=== PATIENT | female | born 1970 | race Caucasian/White ===

== ENCOUNTER → 2020-04-01 | Outpatient (CLI) | payer MEDICARE | LOC: GOCC 19:19 | PROVIDERS: ATTEND Internal Medicine | DX: A04.71 Enterocolitis due to Clostridium difficile, recurrent (principal); B96.7 Clostridium perfringens [C. perfringens] as the cause of diseases classified elsewhere ==

== ENCOUNTER → 2020-05-15 | Outpatient (CLI) | payer MEDICARE, MEDICAID | LOC: GOCC 11:06 | PROVIDERS: ATTEND Internal Medicine | DX: Z20.828 Contact with and (suspected) exposure to other viral communicable diseases (principal); J96.20 Acute and chronic respiratory failure, unspecified whether with hypoxia or hypercapnia; Z99.11 Dependence on respirator [ventilator] status; R49.1 Aphonia; R13.10 Dysphagia, unspecified; A04.71 Enterocolitis due to Clostridium difficile, recurrent; Z93.1 Gastrostomy status; R13.12 Dysphagia, oropharyngeal phase; K59.00 Constipation, unspecified; B37.9 Candidiasis, unspecified; F41.9 Anxiety disorder, unspecified; E03.9 Hypothyroidism, unspecified; I50.9 Heart failure, unspecified; I10 Essential (primary) hypertension; G47.00 Insomnia, unspecified; Z93.0 Tracheostomy status; I80.9 Phlebitis and thrombophlebitis of unspecified site; R27.8 Other lack of coordination; E66.01 Morbid (severe) obesity due to excess calories; E87.6 Hypokalemia; M62.81 Muscle weakness (generalized); R27.9 Unspecified lack of coordination; R26.81 Unsteadiness on feet; E11.40 Type 2 diabetes mellitus with diabetic neuropathy, unspecified; R21 Rash and other nonspecific skin eruption; H66.90 Otitis media, unspecified, unspecified ear; N31.9 Neuromuscular dysfunction of bladder, unspecified; M62.59 Muscle wasting and atrophy, not elsewhere classified, multiple sites ==

== ENCOUNTER 2020-05-19 20:16 | Emergency (ER) | payer MEDICARE, MEDICAID ==
--- NOTE | 2020-05-19 20:26 | ED.PDOC ---
History of Present Illness - General Time Seen by Provider: 05/19/20 20:23 Information Source: patient, RN notes reviewed, Vital Signs reviewed, EMS notes reviewed Exam Limitations: other - pt has a trach and mouths words - History of Present Illness Initial Comments: 50 y/o female resident of [place], nonambulatory suffers from chronic abd pain but she has had marked distention for 2 days. She had a BM today and yesterday. She takes narcotic for chronic abd pain. She had a neg covid 5 days ago. Abdominal Pain Onset Location: generalized abdomen Pain Radiation: no radiation Quality: severe, steady Timing/Duration: days - 2 days Improving Factors: nothing Worsening Factors: nothing Associated Symptoms: denies symptoms Review of Systems - Review of Systems Constitutional: States: see HPI EENTM: States: no symptoms reported Respiratory: States: no symptoms reported Cardiology: States: no symptoms reported Gastrointestinal/Abdominal: States: abdominal pain, other - distention Genitourinary: States: no symptoms reported Musculoskeletal: States: other - non ambulatory Skin: States: no symptoms reported Family Medical History - Family History Mother Family History: Unknown Physical Exam - Physical Exam General Appearance: Alert, No apparent distress Eyes, Ears, Nose, Throat Exam: PERRL/EOMI, pharynx normal Neck: other - trach with trach collar Respiratory: chest non-tender, lungs clear, normal breath sounds, no respiratory distress, no accessory muscle use, decreased breath sounds Cardiovascular/Chest: regular rate, rhythm, no edema, no gallop, no JVD, no murmur Gastrointestinal/Abdominal: other - high pitched Back Exam: normal inspection Extremity: other - pt has good ROM, bed bound Neurologic: no motor/sensory deficits, alert, normal mood/affect, oriented x 3 Departure - Departure Clinical Impression: Gastroparesis, Abdominal pain Time of Disposition: 23:14 Disposition: Discharge to SNF Condition: Fair Instructions: Gastroparesis (Delayed Gastric Emptying) Diet: full liquid diet Referrals: VALENTINA DODD [Primary Care Provider] - 1-2 Weeks Prescriptions: Metoclopramide HCl [Reglan] 10 mg PO AC PRN 28 Days #20 tab PRN Reason: Abdominal Distress Home Medications: Ambulatory Orders Amlodipine Besylate 5 mg PO DAILY 05/19/20 Bisacodyl 10 mg DAILY PRN 05/19/20 Budesonide 0.5 mg INH BID 05/19/20 Carboxymethylcellulose Sodium 2 drop BOTH_EYES Q12HR 05/19/20 Chlorhexidine Gluconate 15 ml PO Q6HR 05/19/20 Clonazepam 1 mg PO BEDTIME 05/19/20 Cyanocobalamin 1 tablet PO DAILY 05/19/20 Cyclobenzaprine HCl 10 mg PO Q8HR 05/19/20 Diltiazem HCl 30 mg PO Q8HR 05/19/20 Eliquis 5 mg PO Q12HR 05/19/20 Ergocalciferol 1 capsule PO DAILY 05/19/20 Guaifenesin 10 ml PO Q4HR 05/19/20 HYDROmorphone HCL 2 mg PO Q6HR PRN 05/19/20 Humalog 05/19/20 Ibuprofen 400 mg PO Q8HR PRN 05/19/20 Ipratropium-Albuterol 3 ml INH Q12HR 05/19/20 Lactulose 30 ml PO DAILY 05/19/20 Lansoprazole 30 mg PO DAILY 05/19/20 Lasix 40 mg PO DAILY 05/19/20 Levemir 20 units SUBCU Q12HR 05/19/20 Levothyroxine Sodium 100 mg PO DAILY 05/19/20 Maalox 30 ml PO DAILY 05/19/20 Metoclopramide HCl [Reglan] 10 mg PO AC PRN 28 Days #20 tab 05/19/20 Montelukast 10 mg PO DAILY 05/19/20 Multivitamin 1 PO DAILY 05/19/20 Polyethylene Glycol 17 gm PO DAILY 05/19/20 Senna/Docusate Sodium 8.6-50 mg 8.6 - 50 mg PO DAILY 05/19/20 Tramadol HCl 50 mg PO Q6HR PRN 05/19/20 Trazodone HCl 200 mg PO DAILY 05/19/20 Tylenol 500 mg PO Q6HRS PRN 05/19/20 Vitamin C 500 mg PO DAILY 05/19/20 Zyrtec 10 mg PO DAILY 05/19/20
[2020-05-19] MEDS ORDERED: ONDANSETRON INJ 4 MG/2 ML VIAL IV ONE (20:29)
[2020-05-19] MEDS ORDERED: SODIUM CHLORIDE 0.9% (FLUSH) 10 ML SYG IV PRN (20:29)
[2020-05-19] MEDS ORDERED: MORPHINE SULFATE INJ 10 MG/ML VIAL IV ONE (20:31)
[2020-05-19] MEDS ORDERED: fentaNYL CITRATE INJ 50 MCG/ML AMP IV ONE ×3 (21:15→23:20)
--- NOTE | 2020-05-19 23:00 | CT ---
EXAM DESCRIPTION: Abdomen/Pelvis w/Contrast CLINICAL HISTORY: 50 years Female severe distention and pain COMPARISON: None TECHNIQUE: Multiple contiguous axial CT slices were taken from the diaphragms to the pubic symphysis after intravenous administration of Iodinated contrast. This exam was performed according to our departmental dose-optimization program, which includes automated exposure control, adjustment of the mA and/or kV according to patient size and/or use of iterative reconstruction technique. FINDINGS: Suboptimal study quality due to partial exclusion of the left anterior and lateral abdominal wall and adjacent abdominal contents due to body habitus Minimal linear atelectasis at the right lung base. Lungs otherwise clear. Presents paranasal structures normal. No focal hepatic lesions. Gallbladder bile ducts pancreas spleen and adrenals are normal normal. Kidneys ureters and bladder are unremarkable, accounting for ectopic position of the right kidney. Uterus is normal with IUD in place. No suspicious adnexal lesions. Hiatal hernia. Cluster of mildly dilated loops of proximal small bowel centered within the left upper quadrant, but without air-fluid level or discernible transition point. There is also a focally dilated outpouching of small bowel with equalized contents in the central abdomen, involving the ileum.. Some adjacent coarse calcification is noted. Appendix is normal. The cecum and ascending colon are normal. The transverse colon appears normal, but otherwise redundant. The splenic flexure is partially excluded from the [id number] along with the left aspect of the anterior and lateral abdominal bella, due to body habitus. Redundant sigmoid colon. The sigmoid colon tracks up into the right upper quadrant, adjacent to the hepatic flexure but is not appreciably dilated and and there is no evidence of upstream bowel dilation. There is no evidence of vascular pedicle swelling. No discernible pneumatosis or pneumoperitoneum cannot for study limitations. Limited for evaluation of abdominal hernia defects although none are seen. Aorta and IVC are normal. No lymphadenopathy. No destructive osseous lesions. IMPRESSION: 1. Suboptimal exam secondary to reasons stated above. 2. Equivocal for evidence of bowel obstruction. Specifically, there are nonspecific focally dilated loops of proximal small bowel within the left upper quadrant, without clear transition point. There is also redundant sigmoid, extending up to residing in the right upper quadrant, but without features of volvulus. 3. Incidental probable Meckel's diverticulum. 4. Hiatal hernia. Electronically signed by: Antwan Lorenzo MD 05/19/2020 10:59 PM CDT
[2020-05-19 23:51] VITALS: BP 122/50; TEMP 97.6; O2SAT 98
== END 2020-05-19 23:45 ==
LOC: ER 20:16
DX: K31.84 Gastroparesis (principal); G89.29 Other chronic pain; Z79.899 Other long term (current) drug therapy
CPT/HCPCS: 36415; 74177; 80048; 80076; 81001; 85025; 87086; A4216; J2405; J3010

== ENCOUNTER 2020-06-13 19:23 | Emergency (ER) | payer MEDICARE, MEDICAID ==
[2020-06-13] MEDS ORDERED: fentaNYL CITRATE INJ 50 MCG/ML AMP IV ONE ×3 (19:45→23:45)
[2020-06-13] MEDS ORDERED: ONDANSETRON INJ 4 MG/2 ML VIAL IV ONE (19:45)
--- NOTE | 2020-06-13 21:41 | RAD ---
EXAM: Knee,Left Complete CLINICAL HISTORY: left knee pain COMPARISON: None. TECHNIQUE: AP lateral, and sunrise radiographs of the left knee. FINDINGS: Anatomic alignment. No fracture, dislocation or destructive osseous lesion. Advanced tricompartmental osteoarthrosis, most pronounced in the medial and patellofemoral compartments. Suspected loose intra-articular body is noted near the intercondylar notch. No joint effusion. No soft tissue swelling. IMPRESSION: 1. No fracture or traumatic malalignment. 2. Advanced tricompartmental osteoarthrosis Electronically signed by: Antwan Lorenzo MD 06/13/2020 9:39 PM CDT
--- NOTE | 2020-06-13 21:42 | RAD ---
EXAM: Pelvis CLINICAL HISTORY: left hip pain COMPARISON: None. TECHNIQUE: AP radiographs of the pelvis. FINDINGS: Pelvic ring is intact. Hip joints are congruent. Sacroiliac joints are congruent. No fracture dislocation or destructive osseous lesion. Sacrum obscured by overlying bowel gas. IMPRESSION: 1. No acute abnormality. Electronically signed by: Antwan Lorenzo MD 06/13/2020 9:40 PM CDT
--- NOTE | 2020-06-13 22:32 | ED.PDOC ---
History of Present Illness - General Chief Complaint: Lower Extremity Injury Stated Complaint: left knee pain Time Seen by Provider: 06/13/20 19:44 Source: patient, RN notes reviewed, Vital Signs reviewed, EMS notes reviewed Exam Limitations: other - Difficult to communicate with the patient because she is trached - History of Present Illness Initial Comments: Patient is a 50-year-old white female who presents from [facility] with complaints of left knee and left hip pain. [facility] patient had an x-ray of her knee which showed it was fractured and this was done a couple of weeks ago. Patient reported worsening pain and therefore, the [facility] her to the [facility] for further evaluation. The pain is sharp in nature. Worse with palpation. Better with rest and pain medication. Nonradiating. The pain is been ongoing for a few weeks. Severity: moderate Pain Location: lower extremity Method of Injury: unknown Improving Factors: medication, rest Worsening Factors: movement Loss of Consciousness: no loss of consciousness Associated Symptoms (Fall): denies symptoms Allergies/Adverse Reactions: Allergies Azithromycin Allergy (Verified 05/19/20 20:48) Bismuth Subsalicylate Allergy (Verified 05/19/20 20:48) Cephalexin Allergy (Verified 05/19/20 20:48) Clindamycin Allergy (Verified 05/19/20 20:48) Doxycycline Allergy (Verified 05/19/20 20:48) Famotidine Allergy (Verified 05/19/20 20:48) Fish Allergy Allergy (Verified 05/19/20 20:48) Gabapentin Allergy (Verified 05/19/20 20:48) Hydrochlorothiazide Allergy (Verified 05/19/20 20:48) Hydrocodone Allergy (Verified 05/19/20 20:48) Influenza Vaccines Allergy (Verified 05/19/20 20:48) Iodine Allergy (Verified 05/19/20 20:48) Latex Allergy (Verified 05/19/20 20:48) Metformin Allergy (Verified 05/19/20 20:48) Morphine Allergy (Verified 05/19/20 20:48) Oxycodone Allergy (Verified 05/19/20 20:48) Penicillins Allergy (Verified 05/19/20 20:48) Sulfacetamide Allergy (Verified 05/19/20 20:48) Sulfamethoxazole Allergy (Verified 05/19/20 20:48) Home Medications: Ambulatory Orders Amlodipine Besylate 5 mg PO DAILY 05/19/20 Bisacodyl 10 mg DAILY PRN 05/19/20 Budesonide 0.5 mg INH BID 05/19/20 Carboxymethylcellulose Sodium 2 drop BOTH_EYES Q12HR 05/19/20 Chlorhexidine Gluconate 15 ml PO Q6HR 05/19/20 Clonazepam 1 mg PO BEDTIME 05/19/20 Cyanocobalamin 1 tablet PO DAILY 05/19/20 Cyclobenzaprine HCl 10 mg PO Q8HR 05/19/20 Diltiazem HCl 30 mg PO Q8HR 05/19/20 Eliquis 5 mg PO Q12HR 05/19/20 Ergocalciferol 1 capsule PO DAILY 05/19/20 Guaifenesin 10 ml PO Q4HR 05/19/20 HYDROmorphone HCL 2 mg PO Q6HR PRN 05/19/20 Humalog 05/19/20 Ibuprofen 400 mg PO Q8HR PRN 05/19/20 Ipratropium-Albuterol 3 ml INH Q12HR 05/19/20 Lactulose 30 ml PO DAILY 05/19/20 Lansoprazole 30 mg PO DAILY 05/19/20 Lasix 40 mg PO DAILY 05/19/20 Levemir 20 units SUBCU Q12HR 05/19/20 Levothyroxine Sodium 100 mg PO DAILY 05/19/20 Maalox 30 ml PO DAILY 05/19/20 Metoclopramide HCl [Reglan] 10 mg PO AC PRN 28 Days #20 tab 05/19/20 Montelukast 10 mg PO DAILY 05/19/20 Multivitamin 1 PO DAILY 05/19/20 Polyethylene Glycol 17 gm PO DAILY 05/19/20 Senna/Docusate Sodium 8.6-50 mg 8.6 - 50 mg PO DAILY 05/19/20 Tramadol HCl 50 mg PO Q6HR PRN 05/19/20 Trazodone HCl 200 mg PO DAILY 05/19/20 Tylenol 500 mg PO Q6HRS PRN 05/19/20 Vitamin C 500 mg PO DAILY 05/19/20 Zyrtec 10 mg PO DAILY 05/19/20 Review of Systems - Review of Systems Constitutional: States: no symptoms reported, see HPI. Denies: chills, fever, malaise, weakness EENTM: States: no symptoms reported. Denies: eye pain, blurred vision, double vision Respiratory: States: cough - chronic Cardiology: States: no symptoms reported. Denies: chest pain, palpitations, syncope Gastrointestinal/Abdominal: States: no symptoms reported. Denies: abdominal pain, diarrhea, nausea Genitourinary: States: no symptoms reported Musculoskeletal: States: joint pain - left knee/hip. Denies: back pain Skin: States: no symptoms reported. Denies: change in color Neurological: States: anxiety. Denies: headache, numbness, tingling Endocrine: States: no symptoms reported Hematologic/Lymphatic: States: no symptoms reported All other Systems: No Change from Baseline Past Medical History (General) - Patient Medical History Hx Seizures: No Hx Stroke: No Hx Dementia: No Hx Asthma: No Hx of COPD: Yes Hx Cardiac Disorders: Yes Hx Congestive Heart Failure: Yes Hx Pacemaker: No Hx Hypertension: Yes Hx Thyroid Disease: Yes Hx Diabetes: Yes Hx Gastroesophageal Reflux: Yes Hx Renal Disease: No Hx Cancer: No Hx of HIV: No Hx Hepatitis C: No Hx MRSA: No Surgical History: other - Vaccination History Hx Tetanus, Diphtheria Vaccination: Yes Hx Influenza Vaccination: Yes Hx Pneumococcal Vaccination: Yes Immunizations Up to Date: No - Social History Hx Tobacco Use: No Hx Chewing Tobacco Use: No Hx Alcohol Use: No Hx Substance Use: No Hx Substance Use Treatment: No Hx Depression: Yes Feels Threatened In Home Enviroment: No Feels Threatened In a Relationship: No Hx Physical Abuse: No Hx Emotional Abuse: No Hx Suspected Abuse: No - Activities of Daily Living Skilled Nursing/Assisted Living (if applicable):: [facility] (if applicable):: None - Female History Patient is a Female of Child Bearing Age (10 -59 yrs old): No Family Medical History - Family History Mother Family History: Unknown Physical Exam - Physical Exam General Appearance: Alert, Anxious, Obese, Well Hydrated, Well Nourished Head Injury: no evidence of injury Eye Exam: bilateral normal ENT Exam: hearing grossly normal, no dental injury, other Neck Exam: non-tender, full range of motion, normal alignment, other - trach in place Cardiovascular/Respiratory: regular rate, rhythm, no M/R/G, normal peripheral pulses, no respiratory distress, rhonchi - diffusely throughout Gastrointestinal/Abdominal: normal bowel sounds, non tender, soft, other - morbidly obese Extremity Exam: pelvis stable, bony-point tenderness, pain with movement Neurologic: eeo officer II-XII nml as tested, no motor/sensory deficits, alert, normal mood/affect, oriented x 3 Skin Exam: normal color, warm/dry - [place] Coma Score Best Eye Response ([place]): (4) open spontaneously Best Verbal Response (Maggie): (5) oriented Best Motor Response (Maggie): (6) obeys commands Maggie Total: 15 Progress - Progress Progress: Differential diagnosis: Knee sprain, hip sprain, knee fracture, hip fracture among others. 06/13/20 23:07 X-ray did not show any fractures. Patient's pain improved after pain meds. Plan [facility] at this [facility]. I have discussed this plan of care with the patient she voices understanding and agreement. Arnulfo Mantilla M.D. #[id number] - Results/Orders Results/Orders: EXAM: Knee,Left Complete CLINICAL HISTORY: left knee pain COMPARISON: None. TECHNIQUE: AP lateral, and sunrise radiographs of the left knee. FINDINGS: Anatomic alignment. No fracture, dislocation or destructive osseous lesion. Advanced tricompartmental osteoarthrosis, most pronounced in the medial and patellofemoral compartments. Suspected loose intra-articular body is noted near the intercondylar notch. No joint effusion. No soft tissue swelling. IMPRESSION: 1. No fracture or traumatic malalignment. 2. Advanced tricompartmental osteoarthrosis Electronically signed by: Antwan Lorenzo MD 06/13/2020 9:39 PM CDT EXAM: Pelvis CLINICAL HISTORY: left hip pain COMPARISON: None. TECHNIQUE: AP radiographs of the pelvis. FINDINGS: Pelvic ring is intact. Hip joints are congruent. Sacroiliac joints are congruent. No fracture dislocation or destructive osseous lesion. Sacrum obscured by overlying bowel gas. IMPRESSION: 1. No acute abnormality. Electronically signed by: Antwan Lorenzo MD 06/13/2020 9:40 PM CDT Vital Signs 06/13/20 06/13/20 06/13/20 19:25 20:23 21:00 Temperature 98.1 F 98.0 F 98.1 F Pulse Rate [ 91 H 90 89 Right Arm] Respiratory 20 18 18 Rate Blood Pressure 112/55 113/59 116/76 [Right Arm] O2 Sat by Pulse 90 L 92 L 91 L Oximetry 06/13/20 22:00 Temperature Pulse Rate [ 83 Right Arm] Respiratory 18 Rate Blood Pressure 114/72 [Right Arm] O2 Sat by Pulse 96 Oximetry Departure - Departure Clinical Impression: Hip pain, Morbid obesity Knee pain Qualifiers: Chronicity: acute Laterality: left Qualified Code(s): M25.562 - Pain in left knee Time of Disposition: 23:08 Disposition: Discharge to SNF Condition: Fair Departure Forms: ED Discharge - Pt. Copy, Patient Portal Self Enrollment Instructions: DI for Leg Pain, Contusion (DC), Knee Sprain (DC) Activity: as per physical therapy, no pushing/pulling with affected limb Referrals: VALENTINA DODD [Primary Care Provider] - 1-5 Days Home Medications: Ambulatory Orders Amlodipine Besylate 5 mg PO DAILY 05/19/20 Bisacodyl 10 mg DAILY PRN 05/19/20 Budesonide 0.5 mg INH BID 05/19/20 Carboxymethylcellulose Sodium 2 drop BOTH_EYES Q12HR 05/19/20 Chlorhexidine Gluconate 15 ml PO Q6HR 05/19/20 Clonazepam 1 mg PO BEDTIME 05/19/20 Cyanocobalamin 1 tablet PO DAILY 05/19/20 Cyclobenzaprine HCl 10 mg PO Q8HR 05/19/20 Diltiazem HCl 30 mg PO Q8HR 05/19/20 Eliquis 5 mg PO Q12HR 05/19/20 Ergocalciferol 1 capsule PO DAILY 05/19/20 Guaifenesin 10 ml PO Q4HR 05/19/20 HYDROmorphone HCL 2 mg PO Q6HR PRN 05/19/20 Humalog 05/19/20 Ibuprofen 400 mg PO Q8HR PRN 05/19/20 Ipratropium-Albuterol 3 ml INH Q12HR 05/19/20 Lactulose 30 ml PO DAILY 05/19/20 Lansoprazole 30 mg PO DAILY 05/19/20 Lasix 40 mg PO DAILY 05/19/20 Levemir 20 units SUBCU Q12HR 05/19/20 Levothyroxine Sodium 100 mg PO DAILY 05/19/20 Maalox 30 ml PO DAILY 05/19/20 Metoclopramide HCl [Reglan] 10 mg PO AC PRN 28 Days #20 tab 05/19/20 Montelukast 10 mg PO DAILY 05/19/20 Multivitamin 1 PO DAILY 05/19/20 Polyethylene Glycol 17 gm PO DAILY 05/19/20 Senna/Docusate Sodium 8.6-50 mg 8.6 - 50 mg PO DAILY 05/19/20 Tramadol HCl 50 mg PO Q6HR PRN 05/19/20 Trazodone HCl 200 mg PO DAILY 05/19/20 Tylenol 500 mg PO Q6HRS PRN 05/19/20 Vitamin C 500 mg PO DAILY 05/19/20 Zyrtec 10 mg PO DAILY 05/19/20
[2020-06-13] MEDS ORDERED: fentaNYL CITRATE INJ 50 MCG/ML AMP ONE (23:36)
[2020-06-14 00:11] VITALS: BP 123/64; TEMP 97.5; O2SAT 98
== END 2020-06-14 00:08 ==
LOC: ER 19:23
DX: M25.562 Pain in left knee (principal); M25.552 Pain in left hip; E66.01 Morbid (severe) obesity due to excess calories; K21.9 Gastro-esophageal reflux disease without esophagitis; E11.9 Type 2 diabetes mellitus without complications; I11.0 Hypertensive heart disease with heart failure; I50.9 Heart failure, unspecified; J44.9 Chronic obstructive pulmonary disease, unspecified; E07.9 Disorder of thyroid, unspecified; Z68.44 Body mass index [BMI] 60.0-69.9, adult; Z79.899 Other long term (current) drug therapy; Z79.4 Long term (current) use of insulin; Z79.01 Long term (current) use of anticoagulants; Z88.8 Allergy status to other drugs, medicaments and biological substances; Z88.2 Allergy status to sulfonamides; Z88.0 Allergy status to penicillin; Z88.5 Allergy status to narcotic agent; Z91.040 Latex allergy status; Z91.041 Radiographic dye allergy status; Z88.1 Allergy status to other antibiotic agents; Z87.81 Personal history of (healed) traumatic fracture
CPT/HCPCS: 72170; 73562; J2405; J3010

== ENCOUNTER 2020-06-26 12:12 | Emergency (ER) | payer MEDICARE, MEDICAID ==
[2020-06-26] MEDS ORDERED: traMADol HCL 50 MG TAB PO ONE (12:31)
--- NOTE | 2020-06-26 13:29 | RAD ---
EXAM: Chest,1 View CLINICAL INDICATION: Difficulty breathing COMPARISON: There is no previous study for comparison. FINDINGS: A single view of the chest was obtained. The heart size is mildly enlarged. The pulmonary vascularity is mildly prominent. A tracheostomy is noted. The lungs are clear. There is no consolidation, infiltrate, pleural effusion, or pneumothorax. IMPRESSION: Findings suggesting mild CHF. Electronically signed by: Antwan Gray MD 06/26/2020 1:27 PM CDT
[2020-06-26] MEDS ORDERED: fentaNYL CITRATE INJ 50 MCG/ML AMP IV ONE ×3 (13:38→15:50)
[2020-06-26] MEDS ORDERED: FUROSEMIDE INJ 20 MG/2 ML VIAL IV ONE (14:17)
--- NOTE | 2020-06-26 15:09 | ED.PDOC ---
History of Present Illness - General Chief Complaint: Respiratory Problem Stated Complaint: breathing difficulty Time Seen by Provider: 06/26/20 12:24 - History of Present Illness Initial Comments: 50 yo F with trach comes in from halfway with worsening shortness of breath. Has been going on one day. No fever, no cough, no chest pain. no n/v/d. Does have chronic left sided pain. No known sick contacts. Was offered anxiety medicine prior to transfer but patient refused. no recent hospitalization. Does not move much. States she feels like she can not take a deep breath. no choking, no sore throat, no trouble swallowing. Allergies/Adverse Reactions: Allergies Azithromycin Allergy (Verified 05/19/20 20:48) Bismuth Subsalicylate Allergy (Verified 05/19/20 20:48) Cephalexin Allergy (Verified 05/19/20 20:48) Clindamycin Allergy (Verified 05/19/20 20:48) Doxycycline Allergy (Verified 05/19/20 20:48) Famotidine Allergy (Verified 05/19/20 20:48) Fish Allergy Allergy (Verified 05/19/20 20:48) Gabapentin Allergy (Verified 05/19/20 20:48) Hydrochlorothiazide Allergy (Verified 05/19/20 20:48) Hydrocodone Allergy (Verified 05/19/20 20:48) Influenza Vaccines Allergy (Verified 05/19/20 20:48) Iodine Allergy (Verified 05/19/20 20:48) Latex Allergy (Verified 05/19/20 20:48) Metformin Allergy (Verified 05/19/20 20:48) Morphine Allergy (Verified 05/19/20 20:48) Oxycodone Allergy (Verified 05/19/20 20:48) Penicillins Allergy (Verified 05/19/20 20:48) Sulfacetamide Allergy (Verified 05/19/20 20:48) Sulfamethoxazole Allergy (Verified 05/19/20 20:48) Home Medications: Ambulatory Orders Amlodipine Besylate 5 mg PO DAILY 05/19/20 Bisacodyl 10 mg DAILY PRN 05/19/20 Budesonide 0.5 mg INH BID 05/19/20 Carboxymethylcellulose Sodium 2 drop BOTH_EYES Q12HR 05/19/20 Chlorhexidine Gluconate 15 ml PO Q6HR 05/19/20 Clonazepam 1 mg PO BEDTIME 05/19/20 Cyanocobalamin 1 tablet PO DAILY 05/19/20 Cyclobenzaprine HCl 10 mg PO Q8HR 05/19/20 Diltiazem HCl 30 mg PO Q8HR 05/19/20 Eliquis 5 mg PO Q12HR 05/19/20 Ergocalciferol 1 capsule PO DAILY 05/19/20 Guaifenesin 10 ml PO Q4HR 05/19/20 HYDROmorphone HCL 2 mg PO Q6HR PRN 05/19/20 Humalog 05/19/20 Ibuprofen 400 mg PO Q8HR PRN 05/19/20 Ipratropium-Albuterol 3 ml INH Q12HR 05/19/20 Lactulose 30 ml PO DAILY 05/19/20 Lansoprazole 30 mg PO DAILY 05/19/20 Lasix 40 mg PO DAILY 05/19/20 Levemir 20 units SUBCU Q12HR 05/19/20 Levothyroxine Sodium 100 mg PO DAILY 05/19/20 Maalox 30 ml PO DAILY 05/19/20 Metoclopramide HCl [Reglan] 10 mg PO AC PRN 28 Days #20 tab 05/19/20 Montelukast 10 mg PO DAILY 05/19/20 Multivitamin 1 PO DAILY 05/19/20 Polyethylene Glycol 17 gm PO DAILY 05/19/20 Senna/Docusate Sodium 8.6-50 mg 8.6 - 50 mg PO DAILY 05/19/20 Tramadol HCl 50 mg PO Q6HR PRN 05/19/20 Trazodone HCl 200 mg PO DAILY 05/19/20 Tylenol 500 mg PO Q6HRS PRN 05/19/20 Vitamin C 500 mg PO DAILY 05/19/20 Zyrtec 10 mg PO DAILY 05/19/20 Furosemide [Lasix] 20 mg PO DAILY #14 tab 06/26/20 Nitrofurantoin Monohydrate Mac [Macrobid] 100 mg PO BID #14 capsule 06/26/20 Triamcinolone 0.1% Oint [Kenalog 0.1% Ointment] 1 applic TOP BID PRN #1 tube 06/26/20 Review of Systems - Review of Systems Constitutional: Denies: chills, diaphoresis, fever, malaise, weakness EENTM: Denies: ear pain, ear discharge, throat pain, throat swelling, mouth pain, mouth swelling Respiratory: States: short of breath. Denies: cough, orthopnea, stridor, wheezing Cardiology: Denies: chest pain, edema, palpitations, syncope Gastrointestinal/Abdominal: Denies: abdominal pain, constipation, diarrhea, nausea, vomiting Genitourinary: Denies: discharge, dysuria, frequency Musculoskeletal: States: back pain. Denies: joint pain, muscle pain, muscle stiffness Skin: States: rash - psoarsis, itching, flaking . Denies: dryness Neurological: States: anxiety. Denies: depressed, headache, numbness, seizure, tingling, tremors, weakness Endocrine: Denies: increased hunger, increased thirst, increased urine, unexplained weight gain, unexplained weight loss Hematologic/Lymphatic: Denies: anemia, blood clots Past Medical History (General) - Patient Medical History Hx Seizures: No Hx Stroke: No Hx Dementia: No Hx Asthma: No Hx of COPD: Yes Hx Cardiac Disorders: Yes Hx Congestive Heart Failure: Yes Hx Pacemaker: No Hx Hypertension: Yes Hx Thyroid Disease: Yes Hx Diabetes: Yes Hx Gastroesophageal Reflux: Yes Hx Renal Disease: No Hx Cancer: No Hx of HIV: No Hx Hepatitis C: No Hx MRSA: No - Vaccination History Hx Tetanus, Diphtheria Vaccination: Yes Hx Influenza Vaccination: No Hx Pneumococcal Vaccination: No - Social History Hx Tobacco Use: Yes Hx Chewing Tobacco Use: No Hx Alcohol Use: No Hx Substance Use: No Hx Substance Use Treatment: No Hx Depression: Yes Hx Physical Abuse: No Hx Emotional Abuse: No Hx Suspected Abuse: No - Activities of Daily Living Long-Term/Assisted Living (if applicable):: [facility] Family Medical History - Family History Mother Family History: Unknown Physical Exam - Physical Exam General Appearance: Alert, Comfortable, No apparent distress, Well Developed, Well Groomed, Well Hydrated, Well Nourished, Other - obese Eyes, Ears, Nose, Throat Exam: PERRL/EOMI, normal ENT inspection, TMs normal Neck: non-tender, full range of motion, supple, normal inspection, other - trach in placed, no evidence of infection. 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 Progress - Progress Progress: 06/26/20 15:10 patient resting comfortably. no evidence of resp distress. Trach suctioned. no wheezing or rales. Will get cxr, d-dimer. partial ddx: CHF, PE, pneumonia, URI, Covid, obesity hypoventilation syndrome. D-dimer slightly elevated, will get CTA to rule out blood clot. CXR shows mild pulmonary congestion. Will give 20 mg lasix IV. CTA shows: no PE Thickening of interlobular septi and small bilateral pleural f luid collections could be secondary to cardiac decompensation/pulmonary edema. Enlarged mediastinal or hilar lymph nodes of unknown etiology. Blood works shows mild increase in Co2, most likely secondary to underlying hypoventilation syndrome of obesity. The data reviewed when caring for this patient included: nurse notes, prior records, etc. The history and assessments from nurses notes were reviewed and considered, and the patient's home medication list was also reviewed and considered. My assessment and the results of testing completed here in the ED were discussed with the patient. All questions were answered, and she express understanding of my assessment and the plan. she have been instructed to return if their symptoms worsen, and have been asked to follow up with their primary care physician to recheck today's presenting complaint. Strict return precautions given. I have reviewed medication, benefits, alternatives and side effects. Patient decided to proceed with medication.Chacha Thomas DO # [id number] 06/26/20 15:06 URINE CULTURE W/COLONY COUNT Stat 06/26/20 15:59 RESPIRATORY PANEL 2 Stat Laboratory Results WBC 8.3 K/mm3 (4.8-10.8) 06/26/20 12:54 RBC 4.25 M/mm3 (4.20-5.40) 06/26/20 12:54 Hgb 12.1 gm/dL (12.0-16.0) 06/26/20 12:54 Hct 36.7 % (36.0-47.0) 06/26/20 12:54 MCV 86.4 fl (81.0-99.0) 06/26/20 12:54 MCH 28.5 pg (27.0-31.0) 06/26/20 12:54 MCHC 33.0 g/dL (33.0-37.0) 06/26/20 12:54 RDW 14.1 % (11.5-14.5) 06/26/20 12:54 Plt Count 207 K/mm3 (130-400) 06/26/20 12:54 MPV 7.1 fl (7.40-10.4) L 06/26/20 12:54 Absolute Neuts (auto) 6.40 K/uL (1.8-6.8) 06/26/20 12:54 Absolute Lymphs (auto) 1.10 K/uL (1.0-3.4) 06/26/20 12:54 Absolute Monos (auto) 0.50 K/uL (0.2-0.8) 06/26/20 12:54 Absolute Eos (auto) 0.10 K/uL (0.0-0.4) 06/26/20 12:54 Absolute Basos (auto) 0.10 K/uL (0.0-0.1) 06/26/20 12:54 Neutrophils % 78.0 % (42.0-78.0) 06/26/20 12:54 Lymphocytes % 13.1 % (20.0-50.0) L 06/26/20 12:54 Monocytes % 6.6 % (2.0-9.0) 06/26/20 12:54 Eosinophils % 1.6 % (1.0-5.0) 06/26/20 12:54 Basophils % 0.7 % (0.0-2.0) 06/26/20 12:54 D-Dimer, Quantitative 566.0 ng/ml (131-400) H 06/26/20 12:54 Sodium 141 mmol/L (135-145) 06/26/20 12:54 Potassium 4.2 mmol/L (3.6-5.0) 06/26/20 12:54 Chloride 92 mmol/L (101-111) L 06/26/20 12:54 Carbon Dioxide 39 mmol/L (21-31) H 06/26/20 12:54 Anion Gap 14.2 (12-18) 06/26/20 12:54 BUN 12 mg/dL (7-18) 06/26/20 12:54 Creatinine < 0.40 mg/dL (0.6-1.3) L 06/26/20 12:54 BUN/Creatinine Ratio 30.0 (10-20) H 06/26/20 12:54 Random Glucose 146 mg/dL (70-105) H 06/26/20 12:54 Serum Osmolality 283.7 mOsm/L (275-295) 06/26/20 12:54 Calcium 8.7 mg/dL (8.4-10.2) 06/26/20 12:54 Total Bilirubin 0.6 mg/dL (0.2-1.0) 06/26/20 12:54 AST 16 IU/L (10-42) 06/26/20 12:54 ALT 17 IU/L (10-60) 06/26/20 12:54 Alkaline Phosphatase 99 IU/L (42-121) 06/26/20 12:54 B-Natriuretic Peptide 127.0 pg/ml (0-100) H 06/26/20 12:54 Serum Total Protein 7.5 gm/dL (6.4-8.2) 06/26/20 12:54 Albumin 3.8 g/dl (3.2-5.5) 06/26/20 12:54 Globulin 3.7 gm/dL (2.3-3.5) H 06/26/20 12:54 Albumin/Globulin Ratio 1.0 (1.1-1.9) L 06/26/20 12:54 Urine Color Yellow (Yellow) 06/26/20 15:06 Urine Appearance Cloudy (Clear) 06/26/20 15:06 Urine pH 7.0 (4.5-7.8) 06/26/20 15:06 Ur Specific [place] 1.025 (1.005-1.030) 06/26/20 15:06 Urine Protein Negative mg/dL 06/26/20 15:06 Urine Glucose (UA) Negative mg/dL (Negative) 06/26/20 15:06 Urine Ketones Negative mg/dL (NEGATIVE) 06/26/20 15:06 Urine Blood Trace-intact (Negative) H 06/26/20 15:06 Urine Nitrite Positive H 06/26/20 15:06 Urine Bilirubin Negative (NEGATIVE) 06/26/20 15:06 Urine Urobilinogen 1.0 mg/dL (0.2-1.0) 06/26/20 15:06 Ur Leukocyte Esterase Trace (Negative) H 06/26/20 15:06 Urine RBC 3-5 /hpf H 06/26/20 15:06 Urine WBC 3-5 /hpf H 06/26/20 15:06 Ur Epithelial Cells 0 /hpf 06/26/20 15:06 Urine Bacteria 2+ H 06/26/20 15:06 06/26/20 16:39 Departure - Departure Clinical Impression: UTI (urinary tract infection) Qualifiers: Urinary tract infection type: acute cystitis Hematuria presence: with hematuria Qualified Code(s): N30.01 - Acute cystitis with hematuria ICD-10 Supporting Text: Heart failure, not in exacerbation. hilar lymphadenopathy - needs follow up Time of Disposition: 15:40 Disposition: Discharge to SNF Departure Forms: ED Discharge - Pt. Copy, Patient Portal Self Enrollment Instructions: Urinary Tract Infections in Adults, Heart Failure, Adult Referrals: VALENTINA DODD [Primary Care Provider] - 1-2 Days Prescriptions: Triamcinolone 0.1% Oint [Kenalog 0.1% Ointment] 1 applic TOP BID PRN #1 tube PRN Reason: Rash Furosemide [Lasix] 20 mg PO DAILY #14 tab Nitrofurantoin Monohydrate Mac [Macrobid] 100 mg PO BID #14 capsule Home Medications: Ambulatory Orders Amlodipine Besylate 5 mg PO DAILY 05/19/20 Bisacodyl 10 mg DAILY PRN 05/19/20 Budesonide 0.5 mg INH BID 05/19/20 Carboxymethylcellulose Sodium 2 drop BOTH_EYES Q12HR 05/19/20 Chlorhexidine Gluconate 15 ml PO Q6HR 05/19/20 Clonazepam 1 mg PO BEDTIME 05/19/20 Cyanocobalamin 1 tablet PO DAILY 05/19/20 Cyclobenzaprine HCl 10 mg PO Q8HR 05/19/20 Diltiazem HCl 30 mg PO Q8HR 05/19/20 Eliquis 5 mg PO Q12HR 05/19/20 Ergocalciferol 1 capsule PO DAILY 05/19/20 Guaifenesin 10 ml PO Q4HR 05/19/20 HYDROmorphone HCL 2 mg PO Q6HR PRN 05/19/20 Humalog 05/19/20 Ibuprofen 400 mg PO Q8HR PRN 05/19/20 Ipratropium-Albuterol 3 ml INH Q12HR 05/19/20 Lactulose 30 ml PO DAILY 05/19/20 Lansoprazole 30 mg PO DAILY 05/19/20 Lasix 40 mg PO DAILY 05/19/20 Levemir 20 units SUBCU Q12HR 05/19/20 Levothyroxine Sodium 100 mg PO DAILY 05/19/20 Maalox 30 ml PO DAILY 05/19/20 Metoclopramide HCl [Reglan] 10 mg PO AC PRN 28 Days #20 tab 05/19/20 Montelukast 10 mg PO DAILY 05/19/20 Multivitamin 1 PO DAILY 05/19/20 Polyethylene Glycol 17 gm PO DAILY 05/19/20 Senna/Docusate Sodium 8.6-50 mg 8.6 - 50 mg PO DAILY 05/19/20 Tramadol HCl 50 mg PO Q6HR PRN 05/19/20 Trazodone HCl 200 mg PO DAILY 05/19/20 Tylenol 500 mg PO Q6HRS PRN 05/19/20 Vitamin C 500 mg PO DAILY 05/19/20 Zyrtec 10 mg PO DAILY 05/19/20 Furosemide [Lasix] 20 mg PO DAILY #14 tab 06/26/20 Nitrofurantoin Monohydrate Mac [Macrobid] 100 mg PO BID #14 capsule 06/26/20 Triamcinolone 0.1% Oint [Kenalog 0.1% Ointment] 1 applic TOP BID PRN #1 tube 06/26/20
--- NOTE | 2020-06-26 15:35 | CT ---
EXAM: CT CHEST ANGIOGRAPHY WITH IV CONTRAST HISTORY: sob, elevated d-dimer COMPARISON: None Available TECHNIQUE: Contiguous axial images of the chest were obtained from the thoracic inlet to the level of the upper abdomen after the administration of intravenous contrast followed by reconstruction images. Volume rendering images were performed. This exam was performed according to our departmental dose-optimization program, which includes automated exposure control, adjustment of the mA and/or kV according to patient size and/or use of iterative reconstruction technique. FINDINGS: There is a tracheostomy tube. Opacification of the pulmonary arterial system was limited, there is no discrete filling defect within the central and main pulmonary arteries. Segmental and subsegmental branches were suboptimally opacified. There is a small right pleural fluid collection. Increased opacity in the dependent portion of the lungs may represent atelectasis. There is a small left pleural fluid collection. There is cardiomegaly. There is mild thickening of interlobular septi could be secondary to pulmonary edema. Linear and bandlike opacities within the lungs may represent scar versus subsegmental atelectasis. There are enlarged lymph nodes within the mediastinum and mukund, largest measuring 1.5 cm in transverse diameter. The aorta is of normal contour and tapering. There is no pneumothorax. Limited images of the upper abdomen are within normal limits. IMPRESSION: Limited opacification of the pulmonary arterial system. No discrete filling defect within the central and main pulmonary arteries. Thickening of interlobular septi and small bilateral pleural fluid collections could be secondary to cardiac decompensation/pulmonary edema. Enlarged mediastinal or hilar lymph nodes of unknown etiology. Recommend follow-up. Electronically signed by: Jose Campbell MD 06/26/2020 3:33 PM CDT
[2020-06-26 17:00] VITALS: BP 127/77; TEMP 98.1; O2SAT 93
== END 2020-06-26 16:15 ==
LOC: ER 12:12
DX: N30.01 Acute cystitis with hematuria (principal); R06.02 Shortness of breath; J44.9 Chronic obstructive pulmonary disease, unspecified; I50.9 Heart failure, unspecified; I11.0 Hypertensive heart disease with heart failure; E07.9 Disorder of thyroid, unspecified; E11.9 Type 2 diabetes mellitus without complications; K21.9 Gastro-esophageal reflux disease without esophagitis; F32.9 Major depressive disorder, single episode, unspecified; E66.9 Obesity, unspecified; Z87.891 Personal history of nicotine dependence; Z93.0 Tracheostomy status; Z79.899 Other long term (current) drug therapy; Z79.01 Long term (current) use of anticoagulants; Z88.0 Allergy status to penicillin; Z88.8 Allergy status to other drugs, medicaments and biological substances; Z91.041 Radiographic dye allergy status; Z88.7 Allergy status to serum and vaccine; Z88.2 Allergy status to sulfonamides; Z88.5 Allergy status to narcotic agent; Z68.45 Body mass index [BMI] 70 or greater, adult
CPT/HCPCS: 36415; 71045; 71275; 80053; 81001; 83880; 85025; 85379; 87086; 87088; 87186; J1940; J3010

== ENCOUNTER 2020-07-10 07:46 | Emergency (ER) | payer MEDICARE, MEDICAID ==
[2020-07-10] MEDS ORDERED: SODIUM CHLORIDE 0.9% 1000ML 1,000 ML IVS ONE (08:05)
[2020-07-10] MEDS ORDERED: MORPHINE SULFATE INJ 10 MG/ML VIAL IV ONE (08:05)
[2020-07-10] MEDS ORDERED: ONDANSETRON INJ 4 MG/2 ML VIAL IV ONE (08:05)
--- NOTE | 2020-07-10 08:14 | ED.PDOC ---
History of Present Illness - General Chief Complaint: General Stated Complaint: doesn't feel right-thinks she is dehydrated Time Seen by Provider: 07/10/20 08:04 Additional Information: Patient is a 50-year-old female who presents from the snf with chief complaint of generalized weakness. Patient indicates "I feel dehydrated". She indicates that she is "unable to pee". Patient denies any specific symptoms other than a chronic left-sided pain unchanged from baseline. Patient denies shortness of breath, chest pain, abdominal pain, vomiting, diarrhea. She indicates she has mild nausea. Patient is bedbound and has a trach and is nonverbal except for the ability to mouth words and history is somewhat unclear other than a "I feel dehydrated". - History of Present Illness Allergies/Adverse Reactions: Allergies Azithromycin Allergy (Verified 05/19/20 20:48) Bismuth Subsalicylate Allergy (Verified 05/19/20 20:48) Cephalexin Allergy (Verified 05/19/20 20:48) Clindamycin Allergy (Verified 05/19/20 20:48) Doxycycline Allergy (Verified 05/19/20 20:48) Famotidine Allergy (Verified 05/19/20 20:48) Fish Allergy Allergy (Verified 05/19/20 20:48) Gabapentin Allergy (Verified 05/19/20 20:48) Hydrochlorothiazide Allergy (Verified 05/19/20 20:48) Hydrocodone Allergy (Verified 05/19/20 20:48) Influenza Vaccines Allergy (Verified 05/19/20 20:48) Iodine Allergy (Verified 05/19/20 20:48) Latex Allergy (Verified 05/19/20 20:48) Metformin Allergy (Verified 05/19/20 20:48) Morphine Allergy (Verified 05/19/20 20:48) Oxycodone Allergy (Verified 05/19/20 20:48) Penicillins Allergy (Verified 05/19/20 20:48) Sulfacetamide Allergy (Verified 05/19/20 20:48) Sulfamethoxazole Allergy (Verified 05/19/20 20:48) Home Medications: Ambulatory Orders Acetaminophen [Tylenol] 1,000 mg PO Q8H PRN 07/10/20 Alum & Mag Hydrox-Simethicone [Antacid & Antigas 200-200-20 mg/5Ml] 1 carlos PO Q8H PRN 07/10/20 Amlodipine Besylate 5 mg PO DAILY 07/10/20 Apixaban [Eliquis] 5 mg PO Q12H 07/10/20 Ascorbic Acid [Vitamin C] 500 mg PEG Q12H 07/10/20 Bisacodyl Suppository 10Mg [Dulcolax Suppository 10mg] [address] Q24H PRN 07/10/20 Budesonide Nebs [Pulmicort Respules] 0.5 mg NEB BID 07/10/20 Carboxymethylcellulose Sodium [Artificial Tears] 1 % OP Q12H PRN 07/10/20 Cetirizine HCl [ZyrTEC] 10 mg PO DAILY 07/10/20 Chlorhexidine Gluconate (Mouth [Chlorhexidine Gluconate] 15 ml MT Q6H 07/10/20 Clotrimazole W/ Betamethasone [Clotrimazole/Betamethason 1-0.05 %] 1 cre EX DAILY 07/10/20 Cyanocobalamin [B12] 1,000 mcg PO DAILY 07/10/20 Cyclobenzaprine HCl [Cyclobenzaprine Hydrochlo] 10 mg PO Q8H PRN 07/10/20 Diltiazem HCl 30 mg PO Q8H 07/10/20 Ergocalciferol [Vitamin D] 50,000 unit PEG WKLY 07/10/20 Furosemide 40 mg PO DAILY 07/10/20 Ibuprofen 400 mg PO Q8H PRN 07/10/20 Insulin Aspart [Novolog Flexpen] 100 unit SC ACHS 07/10/20 Insulin Glargine [Basaglar Kwikpen] 20 unit SC Q12H 07/10/20 Ipratropium/Albuterol [Duoneb] 3 ml NEB Q12H 07/10/20 Lactulose 30 ml PO DAILY 07/10/20 Levothyroxine Sodium 100 mcg PO DAILY 07/10/20 Lidocaine [Lidocaine Pain Relief Pat] 4 % EX DAILY 07/10/20 Metoclopramide HCl [Metoclopramide Hydrochlor] 10 mg PEG TID 07/10/20 Montelukast [Singulair] 10 mg PEG DAILY 07/10/20 Multiple Vitamin [Multivitamin] 1 tab PO DAILY 07/10/20 Nitrofurantoin Macrocrystal [Nitrofurantoin] 100 mg PO BID 07/10/20 Pantoprazole Tablet [Protonix] 40 mg PO ACBK 07/10/20 Polyethylene Glycol 3350 [Miralax] 17 gm PEG DAILY 07/10/20 Sennosides-Docusate Sodium [Senna-S 8.6-50 mg] 1 tab PEG DAILY 07/10/20 Tramadol HCl 50 mg PEG Q6H PRN 07/10/20 Triamcinolone 0.1% Oint [Kenalog 0.1% Ointment] 1 applic TOP BID 07/10/20 guaiFENesin 100 MG/5 ML [Robitussin] 10 ml PO Q4H PRN 07/10/20 Review of Systems - Review of Systems Constitutional: States: weakness. Denies: chills, fever EENTM: States: no symptoms reported Respiratory: States: no symptoms reported. Denies: cough, short of breath Cardiology: States: no symptoms reported. Denies: chest pain, palpitations Gastrointestinal/Abdominal: States: no symptoms reported, nausea. Denies: abdominal pain, diarrhea, vomiting Genitourinary: States: see HPI Musculoskeletal: States: see HPI Skin: States: no symptoms reported. Denies: rash Neurological: States: no symptoms reported All other Systems: Reviewed and Negative Past Medical History (General) - Patient Medical History Hx Seizures: No Hx Stroke: No Hx Dementia: No Hx Asthma: No Hx of COPD: Yes Hx Cardiac Disorders: Yes Hx Congestive Heart Failure: Yes Hx Pacemaker: No Hx Hypertension: Yes Hx Thyroid Disease: Yes Hx Diabetes: Yes Hx Gastroesophageal Reflux: Yes Hx Renal Disease: No Hx Cancer: No Hx of HIV: No Hx Hepatitis C: No Hx MRSA: No - Vaccination History Hx Tetanus, Diphtheria Vaccination: Yes Hx Influenza Vaccination: No Hx Pneumococcal Vaccination: No - Social History Hx Tobacco Use: Yes Hx Chewing Tobacco Use: No Hx Alcohol Use: No Hx Substance Use: No Hx Substance Use Treatment: No Hx Depression: Yes Hx Physical Abuse: No Hx Emotional Abuse: No Hx Suspected Abuse: No Family Medical History - Family History Mother Family History: Unknown Physical Exam - Physical Exam General Appearance: Alert, Comfortable, No apparent distress, Obese, Other - Patient appears bedbound. She does not appear clinically dehydrated. Ears, Nose, Throat: other - Mucous membranes are moist. Neck: non-tender, full range of motion, supple Respiratory: chest non-tender, lungs clear, normal breath sounds, no respiratory distress, no accessory muscle use Cardiovascular/Chest: normal peripheral pulses, regular rate, rhythm, no edema, no gallop, no JVD, no murmur Peripheral Pulses: radial,right: 2+, radial,left: 2+ Gastrointestinal/Abdominal: normal bowel sounds, non tender, soft Extremity: normal inspection, no pedal edema Neurologic: lap layer II-XII nml as tested, no motor/sensory deficits, alert, normal mood/affect Skin Exam: normal color, warm/dry Progress - Progress Progress: 07/10/20 08:16 Differential diagnosis includes but is not limited to UTI, volume depletion, electrolyte disorder, pneumonia. 07/10/20 08:40 EKG: Normal sinus rhythm, rate 98, normal axis, normal QRS, incomplete RBBB, normal ST segments, nonspecific T wave changes, negative STEMI. 07/10/20 10:03 Patient's laboratory tests have resulted and are all essentially normal/baseline for patient. Patient is not anemic, is not in renal insufficiency, and does not have a UTI. Patient's chest x-ray is read as suggesting vascular congestion but this does not clinically correlate, patient has no shortness of breath or respiratory symptoms today. Patient did not have acute urinary retention when she was catheterized. Patient indicates she is feeling slightly better following IV fluids and feels well enough to go back to the snf. Vital signs stable, patient is NAD and looks clinically well and I believe is safe for discharge with outpatient follow-up. Follow-up instructions, discharge instructions and return to ED precautions discussed with patient. Patient voices understanding and willingness to comply with instructions. All laboratory and radiographic results have been discussed with the patient, and all questions answered. Patient is happy with plan. Departure - Departure Clinical Impression: Generalized weakness Time of Disposition: 10:07 Disposition: Discharge to SNF Condition: Fair Departure Forms: ED Discharge - Pt. Copy, Patient Portal Self Enrollment Instructions: Generalized Weakness Referrals: VALENTINA DODD [Primary Care Provider] - 1 Week Home Medications: Ambulatory Orders Acetaminophen [Tylenol] 1,000 mg PO Q8H PRN 07/10/20 Alum & Mag Hydrox-Simethicone [Antacid & Antigas 200-200-20 mg/5Ml] 1 carlos PO Q8H PRN 07/10/20 Amlodipine Besylate 5 mg PO DAILY 07/10/20 Apixaban [Eliquis] 5 mg PO Q12H 07/10/20 Ascorbic Acid [Vitamin C] 500 mg PEG Q12H 07/10/20 Bisacodyl Suppository 10Mg [Dulcolax Suppository 10mg] [address] Q24H PRN 07/10/20 Budesonide Nebs [Pulmicort Respules] 0.5 mg NEB BID 07/10/20 Carboxymethylcellulose Sodium [Artificial Tears] 1 % OP Q12H PRN 07/10/20 Cetirizine HCl [ZyrTEC] 10 mg PO DAILY 07/10/20 Chlorhexidine Gluconate (Mouth [Chlorhexidine Gluconate] 15 ml MT Q6H 07/10/20 Clotrimazole W/ Betamethasone [Clotrimazole/Betamethason 1-0.05 %] 1 cre EX DAILY 07/10/20 Cyanocobalamin [B12] 1,000 mcg PO DAILY 07/10/20 Cyclobenzaprine HCl [Cyclobenzaprine Hydrochlo] 10 mg PO Q8H PRN 07/10/20 Diltiazem HCl 30 mg PO Q8H 07/10/20 Ergocalciferol [Vitamin D] 50,000 unit PEG WKLY 07/10/20 Furosemide 40 mg PO DAILY 07/10/20 Ibuprofen 400 mg PO Q8H PRN 07/10/20 Insulin Aspart [Novolog Flexpen] 100 unit SC ACHS 07/10/20 Insulin Glargine [Basaglar Kwikpen] 20 unit SC Q12H 07/10/20 Ipratropium/Albuterol [Duoneb] 3 ml NEB Q12H 07/10/20 Lactulose 30 ml PO DAILY 07/10/20 Levothyroxine Sodium 100 mcg PO DAILY 07/10/20 Lidocaine [Lidocaine Pain Relief Pat] 4 % EX DAILY 07/10/20 Metoclopramide HCl [Metoclopramide Hydrochlor] 10 mg PEG TID 07/10/20 Montelukast [Singulair] 10 mg PEG DAILY 07/10/20 Multiple Vitamin [Multivitamin] 1 tab PO DAILY 07/10/20 Nitrofurantoin Macrocrystal [Nitrofurantoin] 100 mg PO BID 07/10/20 Pantoprazole Tablet [Protonix] 40 mg PO ACBK 07/10/20 Polyethylene Glycol 3350 [Miralax] 17 gm PEG DAILY 07/10/20 Sennosides-Docusate Sodium [Senna-S 8.6-50 mg] 1 tab PEG DAILY 07/10/20 Tramadol HCl 50 mg PEG Q6H PRN 07/10/20 Triamcinolone 0.1% Oint [Kenalog 0.1% Ointment] 1 applic TOP BID 07/10/20 guaiFENesin 100 MG/5 ML [Robitussin] 10 ml PO Q4H PRN 07/10/20
--- NOTE | 2020-07-10 08:55 | RAD ---
: 1970. Technique: Portable AP chest x-ray. Comparison: June 26, 2020. Clinical history: weak. Heart size: Heart size is moderately enlarged. There is central vascular congestion. Lungs: No acute consolidation. Pleura: No pleural effusion. No pneumothorax. Mediastinum and mukund: Unremarkable. Skeletal: Unremarkable. Support tubings: Tracheostomy tube is 6.5 cm above the anjali. Impression: 1. Cardiomegaly and vascular congestion. Electronically signed by: Adan Muniz MD 07/10/2020 8:53 AM CDT
[2020-07-10] MEDS: traMADol HCL 50 MG TAB PO ONE ×2 (09:42→09:47)
[2020-07-10] MEDS ORDERED: HYDROmorphone HCL INJ 2 MG/ML VIAL IV ONE (09:47)
[2020-07-10 10:27] VITALS: BP 117/67; TEMP 98.1; O2SAT 96
== END 2020-07-10 10:23 ==
LOC: ER 07:46
DX: R53.1 Weakness (principal); I45.10 Unspecified right bundle-branch block; R11.0 Nausea; R30.0 Dysuria; F32.9 Major depressive disorder, single episode, unspecified; J44.9 Chronic obstructive pulmonary disease, unspecified; I50.9 Heart failure, unspecified; I11.0 Hypertensive heart disease with heart failure; E07.9 Disorder of thyroid, unspecified; K21.9 Gastro-esophageal reflux disease without esophagitis; E11.9 Type 2 diabetes mellitus without complications; Z87.891 Personal history of nicotine dependence; Z79.899 Other long term (current) drug therapy; Z79.4 Long term (current) use of insulin; Z88.2 Allergy status to sulfonamides; Z88.0 Allergy status to penicillin; Z88.5 Allergy status to narcotic agent; Z88.8 Allergy status to other drugs, medicaments and biological substances; Z91.041 Radiographic dye allergy status; Z91.040 Latex allergy status; Z88.7 Allergy status to serum and vaccine; Z88.1 Allergy status to other antibiotic agents; Z74.01 Bed confinement status; Z93.0 Tracheostomy status
CPT/HCPCS: 71045; 80053; 81001; 83605; 84484; 85025; 85610; 87086; 93005; J1170; J2405; J7030

== ENCOUNTER 2020-07-11 19:51 | Emergency (ER) | payer MEDICARE, MEDICAID ==
[2020-07-11] MEDS ORDERED: traMADol HCL 50 MG TAB PO ONE (20:22)
[2020-07-11] MEDS ORDERED: FUROSEMIDE INJ 40 MG/4 ML VIAL IV ONE (20:22)
--- NOTE | 2020-07-11 20:26 | ED.PDOC ---
History of Present Illness - General Chief Complaint: Problem Stated Complaint: can't pee "a lot" Time Seen by Provider: 07/11/20 19:52 Source: patient, RN notes reviewed, EMS notes reviewed, assisted records Additional Information: The patient is a 50F with multiple medical problems including COPD, CHF, HTN, DM, trach dependence, bed bound who presents from assisted for difficulty with urination. The patient states "I can't pee." She denies the urge to urinate but states that she isn't urinating as much as she usually does. The assisted reported that she urinated just before she came to the hospital but the patient states that it didn't "soak the bed like it normally does." She was seen for similar complaint in the ER yesterday where she was actually found to be likely volume overloaded. A catheter was placed and she was not in acute urinary retention. She has refused her lasix at the assisted for the past four days because she says "it doesn't work for me." She denies shortness of breath at this time. No other complaints. - History of Present Illness Allergies/Adverse Reactions: Allergies Azithromycin Allergy (Verified 07/11/20 20:40) Bismuth Subsalicylate Allergy (Verified 07/11/20 20:40) Cephalexin Allergy (Verified 07/11/20 20:40) Clindamycin Allergy (Verified 07/11/20 20:40) Doxycycline Allergy (Verified 07/11/20 20:40) Famotidine Allergy (Verified 07/11/20 20:40) Fish Allergy Allergy (Verified 07/11/20 20:40) Gabapentin Allergy (Verified 07/11/20 20:40) Hydrochlorothiazide Allergy (Verified 07/11/20 20:40) Hydrocodone Allergy (Verified 07/11/20 20:40) Influenza Vaccines Allergy (Verified 07/11/20 20:40) Iodine Allergy (Verified 07/11/20 20:40) Latex Allergy (Verified 07/11/20 20:40) Metformin Allergy (Verified 07/11/20 20:40) Morphine Allergy (Verified 07/11/20 20:40) Oxycodone Allergy (Verified 07/11/20 20:40) Penicillins Allergy (Verified 07/11/20 20:40) Sulfa Antibiotics Allergy (Verified 07/11/20 20:40) Sulfacetamide Allergy (Verified 07/11/20 20:40) Sulfamethoxazole Allergy (Verified 07/11/20 20:40) Home Medications: Ambulatory Orders Acetaminophen [Tylenol] 1,000 mg PO Q8H PRN 07/10/20 Alum & Mag Hydrox-Simethicone [Antacid & Antigas 200-200-20 mg/5Ml] 1 carlos PO Q8H PRN 07/10/20 Amlodipine Besylate 5 mg PO DAILY 07/10/20 Apixaban [Eliquis] 5 mg PO Q12H 07/10/20 Ascorbic Acid [Vitamin C] 500 mg PEG Q12H 07/10/20 Bisacodyl Suppository 10Mg [Dulcolax Suppository 10mg] 10 mg [place] Q24H PRN 07/10/20 Budesonide Nebs [Pulmicort Respules] 0.5 mg NEB BID 07/10/20 Carboxymethylcellulose Sodium [Artificial Tears] 1 % OP Q12H PRN 07/10/20 Cetirizine HCl [ZyrTEC] 10 mg PO DAILY 07/10/20 Chlorhexidine Gluconate (Mouth [Chlorhexidine Gluconate] 15 ml MT Q6H 07/10/20 Clotrimazole W/ Betamethasone [Clotrimazole/Betamethason 1-0.05 %] 1 cre EX DAILY 07/10/20 Cyanocobalamin [B12] 1,000 mcg PO DAILY 07/10/20 Cyclobenzaprine HCl [Cyclobenzaprine Hydrochlo] 10 mg PO Q8H PRN 07/10/20 Diltiazem HCl 30 mg PO Q8H 07/10/20 Ergocalciferol [Vitamin D] 50,000 unit PEG WKLY 07/10/20 Furosemide 40 mg PO DAILY 07/10/20 Ibuprofen 400 mg PO Q8H PRN 07/10/20 Insulin Aspart [Novolog Flexpen] 100 unit SC ACHS 07/10/20 Insulin Glargine [Basaglar Kwikpen] 20 unit SC Q12H 07/10/20 Ipratropium/Albuterol [Duoneb] 3 ml NEB Q12H 07/10/20 Lactulose 30 ml PO DAILY 07/10/20 Levothyroxine Sodium 100 mcg PO DAILY 07/10/20 Lidocaine [Lidocaine Pain Relief Pat] 4 % EX DAILY 07/10/20 Metoclopramide HCl [Metoclopramide Hydrochlor] 10 mg PEG TID 07/10/20 Montelukast [Singulair] 10 mg PEG DAILY 07/10/20 Multiple Vitamin [Multivitamin] 1 tab PO DAILY 07/10/20 Nitrofurantoin Macrocrystal [Nitrofurantoin] 100 mg PO BID 07/10/20 Pantoprazole Tablet [Protonix] 40 mg PO ACBK 07/10/20 Polyethylene Glycol 3350 [Miralax] 17 gm PEG DAILY 07/10/20 Sennosides-Docusate Sodium [Senna-S 8.6-50 mg] 1 tab PEG DAILY 07/10/20 Tramadol HCl 50 mg PEG Q6H PRN 07/10/20 Triamcinolone 0.1% Oint [Kenalog 0.1% Ointment] 1 applic TOP BID 07/10/20 guaiFENesin 100 MG/5 ML [Robitussin] 10 ml PO Q4H PRN 07/10/20 Review of Systems - Review of Systems Constitutional: Denies: chills, fever EENTM: States: no symptoms reported Respiratory: Denies: cough, short of breath Cardiology: Denies: chest pain, palpitations Gastrointestinal/Abdominal: States: constipation - chronic. Denies: abdominal pain, diarrhea, nausea, vomiting Genitourinary: States: see HPI, other - decreased urine output Musculoskeletal: States: no symptoms reported Skin: States: dryness Neurological: States: no symptoms reported Endocrine: States: no symptoms reported Hematologic/Lymphatic: States: no symptoms reported All other Systems: Reviewed and Negative Past Medical History (General) - Patient Medical History Hx Seizures: No Hx Stroke: No Hx Dementia: No Hx Asthma: No Hx of COPD: Yes Hx Cardiac Disorders: Yes Hx Congestive Heart Failure: Yes Hx Pacemaker: No Hx Hypertension: Yes Hx Thyroid Disease: Yes Hx Diabetes: Yes Hx Gastroesophageal Reflux: Yes Hx Renal Disease: No Hx Cancer: No Hx of HIV: No Hx Hepatitis C: No Hx MRSA: No - Vaccination History Hx Tetanus, Diphtheria Vaccination: Yes Hx Influenza Vaccination: No Hx Pneumococcal Vaccination: No - Social History Hx Tobacco Use: Yes Hx Chewing Tobacco Use: No Hx Alcohol Use: No Hx Substance Use: No Hx Substance Use Treatment: No Hx Depression: Yes Hx Physical Abuse: No Hx Emotional Abuse: No Hx Suspected Abuse: No - Activities of Daily Living Halfway/Assisted Living (if applicable):: [facility] Family Medical History - Family History Mother Family History: Unknown Physical Exam - Physical Exam General Appearance: Alert, Frail - chronically ill-appearing, Other - Obese Ears, Nose, Throat: other - trach collar in place Respiratory: lungs clear, normal breath sounds, no respiratory distress, no accessory muscle use Cardiovascular/Chest: regular rate, rhythm Gastrointestinal/Abdominal: non tender, soft Neurologic: no motor/sensory deficits, alert, normal mood/affect, oriented x 3 Skin Exam: rash - psoriasis noted to bilateral upper extremities, scattered plaques Progress - Progress Progress: 07/11/20 21:20 Patient reassessed, labs as below. She does not have signs/symptoms of acute dehydration and she does not have urinary retention. She actually appears somewhat fluid overloaded although she does not have respiratory symptoms at this time. She was given lasix in the ED and urinated well and without difficulty. Discussed with the patient that she will need to continue her oral lasix at her nursing facility and she will need to follow up with her primary care doctor there. For her chronic pain and other medical conditions she will resume her usual home medications. - Results/Orders Results/Orders: Laboratory Results - last 24 hr 07/11/20 07/11/20 20:26 20:26 WBC 7.2 RBC 3.83 L Hgb 10.6 L Hct 33.1 L MCV 86.4 MCH 27.8 MCHC 32.1 L RDW 13.9 Plt Count 182 MPV 6.8 L Absolute Neuts (auto) 5.60 Absolute Lymphs (auto) 1.00 Absolute Monos (auto) 0.50 Absolute Eos (auto) 0.10 Absolute Basos (auto) 0.00 Neutrophils % 77.5 Lymphocytes % 13.9 L Monocytes % 7.0 Eosinophils % 1.1 Basophils % 0.5 Sodium 142 Potassium 4.5 Chloride 90 L Carbon Dioxide 44 H Anion Gap 12.5 BUN 12 Creatinine < 0.40 L BUN/Creatinine Ratio 30.0 H Random Glucose 209 H Serum Osmolality 289.0 Calcium 8.7 Departure - Departure Clinical Impression: Volume overload Qualifiers: Hypervolemia type: unspecified Qualified Code(s): E87.70 - Fluid overload, unspecified Time of Disposition: 21:22 Disposition: Discharge to Home or Self Care Condition: Fair Departure Forms: ED Discharge - Pt. Copy, Patient Portal Self Enrollment Instructions: Heart Failure, Adult (DC) Diet: resume usual diet Activity: increase activity as tolerated Referrals: VALENTINA DODD [Primary Care Provider] - 1-2 Weeks Home Medications: Ambulatory Orders Acetaminophen [Tylenol] 1,000 mg PO Q8H PRN 07/10/20 Alum & Mag Hydrox-Simethicone [Antacid & Antigas 200-200-20 mg/5Ml] 1 carlos PO Q8H PRN 07/10/20 Amlodipine Besylate 5 mg PO DAILY 07/10/20 Apixaban [Eliquis] 5 mg PO Q12H 07/10/20 Ascorbic Acid [Vitamin C] 500 mg PEG Q12H 07/10/20 Bisacodyl Suppository 10Mg [Dulcolax Suppository 10mg] 10 mg [place] Q24H PRN 07/10/20 Budesonide Nebs [Pulmicort Respules] 0.5 mg NEB BID 07/10/20 Carboxymethylcellulose Sodium [Artificial Tears] 1 % OP Q12H PRN 07/10/20 Cetirizine HCl [ZyrTEC] 10 mg PO DAILY 07/10/20 Chlorhexidine Gluconate (Mouth [Chlorhexidine Gluconate] 15 ml MT Q6H 07/10/20 Clotrimazole W/ Betamethasone [Clotrimazole/Betamethason 1-0.05 %] 1 cre EX DAILY 07/10/20 Cyanocobalamin [B12] 1,000 mcg PO DAILY 07/10/20 Cyclobenzaprine HCl [Cyclobenzaprine Hydrochlo] 10 mg PO Q8H PRN 07/10/20 Diltiazem HCl 30 mg PO Q8H 07/10/20 Ergocalciferol [Vitamin D] 50,000 unit PEG WKLY 07/10/20 Furosemide 40 mg PO DAILY 07/10/20 Ibuprofen 400 mg PO Q8H PRN 07/10/20 Insulin Aspart [Novolog Flexpen] 100 unit SC ACHS 07/10/20 Insulin Glargine [Basaglar Kwikpen] 20 unit SC Q12H 07/10/20 Ipratropium/Albuterol [Duoneb] 3 ml NEB Q12H 07/10/20 Lactulose 30 ml PO DAILY 07/10/20 Levothyroxine Sodium 100 mcg PO DAILY 07/10/20 Lidocaine [Lidocaine Pain Relief Pat] 4 % EX DAILY 07/10/20 Metoclopramide HCl [Metoclopramide Hydrochlor] 10 mg PEG TID 07/10/20 Montelukast [Singulair] 10 mg PEG DAILY 07/10/20 Multiple Vitamin [Multivitamin] 1 tab PO DAILY 07/10/20 Nitrofurantoin Macrocrystal [Nitrofurantoin] 100 mg PO BID 07/10/20 Pantoprazole Tablet [Protonix] 40 mg PO ACBK 07/10/20 Polyethylene Glycol 3350 [Miralax] 17 gm PEG DAILY 07/10/20 Sennosides-Docusate Sodium [Senna-S 8.6-50 mg] 1 tab PEG DAILY 07/10/20 Tramadol HCl 50 mg PEG Q6H PRN 07/10/20 Triamcinolone 0.1% Oint [Kenalog 0.1% Ointment] 1 applic TOP BID 07/10/20 guaiFENesin 100 MG/5 ML [Robitussin] 10 ml PO Q4H PRN 07/10/20
[2020-07-11 21:05] VITALS: O2SAT 99
[2020-07-11 21:46] VITALS: BP 125/84; TEMP 97.9
== END 2020-07-11 21:46 ==
LOC: ER 19:51
DX: E87.70 Fluid overload, unspecified (principal); R39.15 Urgency of urination; F32.9 Major depressive disorder, single episode, unspecified; K21.9 Gastro-esophageal reflux disease without esophagitis; I11.0 Hypertensive heart disease with heart failure; I50.9 Heart failure, unspecified; E11.9 Type 2 diabetes mellitus without complications; E07.9 Disorder of thyroid, unspecified; J44.9 Chronic obstructive pulmonary disease, unspecified; Z79.4 Long term (current) use of insulin; Z79.899 Other long term (current) drug therapy; Z88.8 Allergy status to other drugs, medicaments and biological substances; Z88.2 Allergy status to sulfonamides; Z88.0 Allergy status to penicillin; Z88.5 Allergy status to narcotic agent; Z88.7 Allergy status to serum and vaccine; Z91.040 Latex allergy status; Z91.041 Radiographic dye allergy status; Z88.1 Allergy status to other antibiotic agents; Z93.0 Tracheostomy status; Z74.01 Bed confinement status
CPT/HCPCS: 80048; 85025; J1940

== ENCOUNTER → 2020-08-14 | Outpatient (CLI) | payer MEDICARE, MEDICAID | LOC: GOCC 18:34 | PROVIDERS: ATTEND Internal Medicine | DX: R39.198 Other difficulties with micturition (principal); R33.9 Retention of urine, unspecified ==

== ENCOUNTER 2020-08-16 16:05 | Emergency (ER) | payer MEDICARE, MEDICAID ==
[2020-08-16] MEDS ORDERED: SODIUM CHLORIDE 0.9% 1000ML 1,000 ML IVS ONE (16:18)
[2020-08-16] MEDS ORDERED: ACETAMINOPHEN IV 1000MG 1,000 MG in PREMIX BOTTLE 1 BOTTLE IVPB ONE (16:18)
--- NOTE | 2020-08-16 16:25 | ED.PDOC ---
History of Present Illness - General Chief Complaint: Abdominal Pain Time Seen by Provider: 08/16/20 16:06 Information Source: patient, RN notes reviewed, Vital Signs reviewed, EMS notes reviewed, detention records, old records Exam Limitations: no limitations - History of Present Illness Initial Comments: 50 yo F with multiple comorbidities and multiple ER visit presents with one day of intermittent lower abdominal pain. not worsen with food. denies n/v/d. no constipation. no black or bloody bm. no headache, chest pain or shortness of breath. Review of Systems - Review of Systems Constitutional: Denies: chills, fever, malaise EENTM: Denies: blurred vision, throat pain, mouth pain Respiratory: Denies: cough, short of breath, stridor Cardiology: States: chest pain. Denies: palpitations, syncope Gastrointestinal/Abdominal: States: abdominal pain. Denies: constipation, diarrhea, nausea, vomiting Genitourinary: Denies: dysuria, frequency, hematuria Musculoskeletal: States: back pain - chronic Skin: States: rash - psorasis, chronic Neurological: Denies: headache, numbness, seizure Endocrine: Denies: unexplained weight gain, unexplained weight loss Hematologic/Lymphatic: Denies: easy bleeding, easy bruising Past Medical History (General) - Patient Medical History Hx Seizures: No Hx Stroke: No Hx Dementia: No Hx Asthma: No Hx of COPD: Yes Hx Cardiac Disorders: Yes Hx Congestive Heart Failure: Yes Hx Pacemaker: No Hx Hypertension: Yes Hx Thyroid Disease: Yes Hx Diabetes: Yes Hx Gastroesophageal Reflux: Yes Hx Renal Disease: No Hx Cancer: No Hx of HIV: No Hx Hepatitis C: No Hx MRSA: No - Vaccination History Hx Tetanus, Diphtheria Vaccination: Yes Hx Influenza Vaccination: No Hx Pneumococcal Vaccination: No - Social History Hx Tobacco Use: Yes Hx Chewing Tobacco Use: No Hx Alcohol Use: No Hx Substance Use: No Hx Substance Use Treatment: No Hx Depression: Yes Hx Physical Abuse: No Hx Emotional Abuse: No Hx Suspected Abuse: No Family Medical History - Family History Mother Family History: Unknown Physical Exam - Physical Exam General Appearance: Alert, Comfortable, No apparent distress, Obese, Well Developed, Well Groomed, Well Hydrated, Well Nourished Eyes, Ears, Nose, Throat Exam: PERRL/EOMI, normal ENT inspection Neck: non-tender, full range of motion, supple, normal inspection Respiratory: chest non-tender, lungs clear, normal breath sounds, no respiratory distress, no accessory muscle use Cardiovascular/Chest: normal peripheral pulses, regular rate, rhythm, no edema, no gallop, no JVD, no murmur Peripheral Pulses: 2+ Gastrointestinal/Abdominal: normal bowel sounds, non tender, soft, no organom egaly, no pulsatile mass Rectal Exam: deferred Back Exam: normal inspection, no CVA tenderness, no vertebral tenderness Extremity: non-tender, no calf tenderness, normal capillary refill Neurologic: no motor/sensory deficits, alert, normal mood/affect, oriented x 3 Skin Exam: warm/dry, other - psorasis rash Progress - Progress Progress: 08/16/20 19:38 partial ddx: pancreatitis, stone, gastroenteritis, muscle strain, uti, others. patient given IVF and tylenol for pain. The data reviewed when caring for this patient included: nurse notes, prior records, etc. The history and assessments from nurses notes were reviewed and considered, and the patient's home medication list was also reviewed and considered. My assessment and the results of testing completed here in the ED were discussed with the patient/family. All questions were answered, and they express understanding of my assessment and the plan. They have been instructed to return if their symptoms worsen, and have been asked to follow up with their primary care physician to recheck today's presenting complaint. Strict return precautions given. I have reviewed medication, benefits, alternatives and side effects. Patient decided to proceed with medication. Chacha Thomas DO #[id number] - Results/Orders Results/Orders: 08/16/20 16:15 EKG STAT 08/16/20 18:20 URINE CULTURE W/COLONY COUNT Stat Laboratory Results WBC 6.9 K/mm3 (4.8-10.8) 08/16/20 16:20 RBC 3.60 M/mm3 (4.20-5.40) L 08/16/20 16:20 Hgb 9.8 gm/dL (12.0-16.0) L 08/16/20 16:20 Hct 30.6 % (36.0-47.0) L 08/16/20 16:20 MCV 85.1 fl (81.0-99.0) 08/16/20 16:20 MCH 27.2 pg (27.0-31.0) 08/16/20 16:20 MCHC 32.0 g/dL (33.0-37.0) L 08/16/20 16:20 RDW 14.7 % (11.5-14.5) H 08/16/20 16:20 Plt Count 208 K/mm3 (130-400) 08/16/20 16:20 MPV 6.9 fl (7.40-10.4) L 08/16/20 16:20 Absolute Neuts (auto) 5.20 K/uL (1.8-6.8) 08/16/20 16:20 Absolute Lymphs (auto) 1.00 K/uL (1.0-3.4) 08/16/20 16:20 Absolute Monos (auto) 0.50 K/uL (0.2-0.8) 08/16/20 16:20 Absolute Eos (auto) 0.10 K/uL (0.0-0.4) 08/16/20 16:20 Absolute Basos (auto) 0.00 K/uL (0.0-0.1) 08/16/20 16:20 Neutrophils % 75.1 % (42.0-78.0) 08/16/20 16:20 Lymphocytes % 14.9 % (20.0-50.0) L 08/16/20 16:20 Monocytes % 7.7 % (2.0-9.0) 08/16/20 16:20 Eosinophils % 1.7 % (1.0-5.0) 08/16/20 16:20 Basophils % 0.6 % (0.0-2.0) 08/16/20 16:20 Sodium 140 mmol/L (135-145) 08/16/20 16:20 Potassium 4.2 mmol/L (3.6-5.0) 08/16/20 16:20 Chloride 90 mmol/L (101-111) L 08/16/20 16:20 Carbon Dioxide 41 mmol/L (21-31) H 08/16/20 16:20 Anion Gap 13.2 (12-18) 08/16/20 16:20 BUN 13 mg/dL (7-18) 08/16/20 16:20 Creatinine 0.49 mg/dL (0.6-1.3) L 08/16/20 16:20 BUN/Creatinine Ratio 26.5 (10-20) H 08/16/20 16:20 Random Glucose 269 mg/dL (70-105) H 08/16/20 16:20 Serum Osmolality 289.0 mOsm/L (275-295) 08/16/20 16:20 Calcium 8.4 mg/dL (8.4-10.2) 08/16/20 16:20 Total Bilirubin 0.6 mg/dL (0.2-1.0) 08/16/20 16:20 AST 14 IU/L (10-42) 08/16/20 16:20 ALT 16 IU/L (10-60) 08/16/20 16:20 Alkaline Phosphatase 94 IU/L (42-121) 08/16/20 16:20 Troponin I < 0.02 ng/mL (0.01-0.05) 08/16/20 16:20 Serum Total Protein 6.8 gm/dL (6.4-8.2) 08/16/20 16:20 Albumin 3.2 g/dl (3.2-5.5) 08/16/20 16:20 Globulin 3.6 gm/dL (2.3-3.5) H 08/16/20 16:20 Albumin/Globulin Ratio 0.9 (1.1-1.9) L 08/16/20 16:20 Lipase 21 U/L (22-51) L 08/16/20 16:20 Urine Color Yellow (Yellow) 08/16/20 18:20 Urine Appearance Cloudy (Clear) 08/16/20 18:20 Urine pH 7.0 (4.5-7.8) 08/16/20 18:20 Ur Specific Brice >= 1.030 (1.005-1.030) 08/16/20 18:20 Urine Protein 100 mg/dL H 08/16/20 18:20 Urine Glucose (UA) 100 mg/dL (Negative) H 08/16/20 18:20 Urine Ketones Negative mg/dL (NEGATIVE) 08/16/20 18:20 Urine Blood Moderate (Negative) H 08/16/20 18:20 Urine Nitrite Positive H 08/16/20 18:20 Urine Bilirubin Negative (NEGATIVE) 08/16/20 18:20 Urine Urobilinogen 1.0 mg/dL (0.2-1.0) 08/16/20 18:20 Ur Leukocyte Esterase Negative (Negative) 08/16/20 18:20 Urine RBC >50 /hpf H 08/16/20 18:20 Urine WBC 5-10 /hpf H 08/16/20 18:20 Ur Epithelial Cells 0 /hpf 08/16/20 18:20 Calcium Oxalate Crystal 1+ /hpf 08/16/20 18:20 Urine Bacteria 4+ H 08/16/20 18:20 - EKG/XRAY/CT CT: abd/pelvis: There is increased right basilar airspace, abd no acute patholo Departure - Departure Clinical Impression: Pneumonia Qualifiers: Pneumonia type: due to unspecified organism Laterality: unspecified laterality Lung location: unspecified part of lung Qualified Code(s): J18.9 - Pneumonia, unspecified organism UTI (urinary tract infection) Qualifiers: Urinary tract infection type: acute cystitis Hematuria presence: with hematuria Qualified Code(s): N30.01 - Acute cystitis with hematuria Disposition: Discharge to Home or Self Care Departure Forms: ED Discharge - Pt. Copy, Patient Portal Self Enrollment Instructions: DI for Abdominal Pain-Adult, Urinary Tract Infections in Adults, Acute Abdomen (Belly Pain), Adult (DC) Referrals: VALENTINA DODD [Primary Care Provider] - 1-2 Days Prescriptions: Levofloxacin [Levaquin] 750 mg PO DAILY #7 tab Home Medications: Ambulatory Orders Acetaminophen [Tylenol] 1,000 mg PO Q8H PRN 07/10/20 Alum & Mag Hydrox-Simethicone [Antacid & [place] 200-200-20 mg/5Ml] 1 carlos PO Q8H PRN 07/10/20 Amlodipine Besylate 5 mg PO DAILY 07/10/20 Apixaban [Eliquis] 5 mg PO Q12H 07/10/20 Ascorbic Acid [Vitamin C] 500 mg PEG Q12H 07/10/20 Bisacodyl Suppository 10Mg [Dulcolax Suppository 10mg] 10 mg OH Q24H PRN 07/10/20 Budesonide Nebs [Pulmicort Respules] 0.5 mg NEB BID 07/10/20 Carboxymethylcellulose Sodium [Artificial Tears] 1 % OP Q12H PRN 07/10/20 Cetirizine HCl [ZyrTEC] 10 mg PO DAILY 07/10/20 Chlorhexidine Gluconate (Mouth [Chlorhexidine Gluconate] 15 ml MT Q6H 07/10/20 Clotrimazole W/ Betamethasone [Clotrimazole/Betamethason 1-0.05 %] 1 cre EX DAILY 07/10/20 Cyanocobalamin [B12] 1,000 mcg PO DAILY 07/10/20 Cyclobenzaprine HCl [Cyclobenzaprine Hydrochlo] 10 mg PO Q8H PRN 07/10/20 Diltiazem HCl 30 mg PO Q8H 07/10/20 Ergocalciferol [Vitamin D] 50,000 unit PEG WKLY 07/10/20 Furosemide 40 mg PO DAILY 07/10/20 Ibuprofen 400 mg PO Q8H PRN 07/10/20 Insulin Aspart [Novolog Flexpen] 100 unit SC ACHS 07/10/20 Insulin Glargine [Basaglar Kwikpen] 20 unit SC Q12H 07/10/20 Ipratropium/Albuterol [Duoneb] 3 ml NEB Q12H 07/10/20 Lactulose 30 ml PO DAILY 07/10/20 Levothyroxine Sodium 100 mcg PO DAILY 07/10/20 Lidocaine [Lidocaine Pain Relief Pat] 4 % EX DAILY 07/10/20 Metoclopramide HCl [Metoclopramide Hydrochlor] 10 mg PEG TID 07/10/20 Montelukast [Singulair] 10 mg PEG DAILY 07/10/20 Multiple Vitamin [Multivitamin] 1 tab PO DAILY 07/10/20 Nitrofurantoin Macrocrystal [Nitrofurantoin] 100 mg PO BID 07/10/20 Pantoprazole Tablet [Protonix] 40 mg PO ACBK 07/10/20 Polyethylene Glycol 3350 [Miralax] 17 gm PEG DAILY 07/10/20 Sennosides-Docusate Sodium [Senna-S 8.6-50 mg] 1 tab PEG DAILY 07/10/20 Tramadol HCl 50 mg PEG Q6H PRN 07/10/20 Triamcinolone 0.1% Oint [Kenalog 0.1% Ointment] 1 applic TOP BID 07/10/20 guaiFENesin 100 MG/5 ML [Robitussin] 10 ml PO Q4H PRN 07/10/20 Levofloxacin [Levaquin] 750 mg PO DAILY #7 tab 08/16/20
[2020-08-16] MEDS ORDERED: INSULIN, REG.(HUMAN) 100 U/ML VIAL SUBCU ONE (17:08)
--- NOTE | 2020-08-16 18:24 | CT ---
EXAM: CT Abdomen and Pelvis Without Intravenous Contrast CLINICAL HISTORY: abd pain TECHNIQUE: Axial computed tomography images of the abdomen and pelvis without intravenous contrast. Sagittal and coronal reformatted images were created and reviewed. This CT exam was performed using one or more of the following dose reduction techniques: automated exposure control, adjustment of the mA and/or kV according to patient size, and/or use of iterative reconstruction technique. COMPARISON: 06/26/2020 CT chest FINDINGS: Limitations: Soft tissue attenuation limits assessment. Lung bases: There is increased consolidation in the right lower lobe. Pleural space: No abnormality noted. Heart: No abnormality noted. Mediastinum: No abnormality noted. ABDOMEN: Liver: Lack of intravenous contrast limits detection of some masses. No abnormality noted. Gallbladder and bile ducts: No calcified stones or surrounding fluid. Pancreas: Lack of intravenous contrast limits detection of some masses. No pancreatic mass, calcification, inflammation or ductal dilation noted. Spleen: No abnormality noted. Adrenals: Visualized portions appear normal. Kidneys and ureters: Punctate nonobstructing right kidney stone. There is no hydronephrosis. Stomach and bowel: There is diffuse moderate colonic stool. No obstruction. Small bowel resection changes present in the midline lower abdomen. PELVIS: Appendix: Well seen and appears normal. Bladder: There is a catheter in the bladder which is collapsed and not assessed. Reproductive: No abnormalities noted. ABDOMEN and PELVIS: Intraperitoneal space: No free air. No significant fluid collection. Bones/joints: No acute change noted. Soft tissues: There is rectus diastases. There is a small umbilical hernia containing fat. Vasculature: No abdominal aortic aneurysm. Lymph nodes: No pathologically enlarged lymph nodes. Tubes, lines and devices: Intrauterine contraceptive device in good position and ureters. IMPRESSION: 1. Limited examination. There is increased right basilar airspace disease concerning for pneumonia. 2. No visible inflammatory process noted in the abdomen or pelvis. Electronically signed by: Layla Moody MD 08/16/2020 6:22 PM [email or web address]
[2020-08-16] MEDS ORDERED: fentaNYL CITRATE INJ 50 MCG/ML 2 ML AMP IV ONE (18:40)
[2020-08-16 19:03] VITALS: BP 123/60; TEMP 98.9; O2SAT 95
== END 2020-08-16 19:30 | disposition home or self-care (01) ==
LOC: ER 16:05
DX: J18.9 Pneumonia, unspecified organism (principal); N30.01 Acute cystitis with hematuria; F32.9 Major depressive disorder, single episode, unspecified; J44.9 Chronic obstructive pulmonary disease, unspecified; I50.9 Heart failure, unspecified; I11.0 Hypertensive heart disease with heart failure; E07.9 Disorder of thyroid, unspecified; E11.9 Type 2 diabetes mellitus without complications; K21.9 Gastro-esophageal reflux disease without esophagitis; E66.9 Obesity, unspecified; Z87.891 Personal history of nicotine dependence; Z79.899 Other long term (current) drug therapy; Z79.4 Long term (current) use of insulin; Z79.01 Long term (current) use of anticoagulants; Z68.43 Body mass index [BMI] 50.0-59.9, adult
CPT/HCPCS: 36415; 74176; 80053; 81001; 83690; 84484; 85025; 87086; 93005; 94002; J3010; J7030

== ENCOUNTER 2020-08-27 17:14 | Emergency (ER) | payer MEDICARE, MEDICAID ==
--- NOTE | 2020-08-27 17:20 | ED.PDOC ---
History of Present Illness - General Time Seen by Provider: 08/27/20 17:18 Source: patient, RN notes reviewed, Vital Signs reviewed, EMS notes reviewed, EMS, jail records, old records Exam Limitations: no limitations - History of Present Illness Initial Comments: 50 yo F comes in by EMS with one day of left sided chest pain and shortness of breath. states she is retaining fluid. Also has cough. Chest pain started th is morning aprx 10 hours ago. patient is requesting something for her chronic pain. states fentanyl and dilaudid work well for her. Also has mild cough. Allergies/Adverse Reactions: Allergies Azithromycin Allergy (Verified 08/27/20 17:21) Bismuth Subsalicylate Allergy (Verified 08/27/20 17:21) Cephalexin Allergy (Verified 08/27/20 17:21) Clindamycin Allergy (Verified 08/27/20 17:21) Doxycycline Allergy (Verified 08/27/20 17:21) Famotidine Allergy (Verified 08/27/20 17:21) Fish Allergy Allergy (Verified 08/27/20 17:21) Gabapentin Allergy (Verified 08/27/20 17:21) Hydrochlorothiazide Allergy (Verified 08/27/20 17:21) Hydrocodone Allergy (Verified 08/27/20 17:21) Influenza Vaccines Allergy (Verified 08/27/20 17:21) Iodine Allergy (Verified 08/27/20 17:21) Latex Allergy (Verified 08/27/20 17:21) Metformin Allergy (Verified 08/27/20 17:21) Morphine Allergy (Verified 08/27/20 17:21) Oxycodone Allergy (Verified 08/27/20 17:21) Penicillins Allergy (Verified 08/27/20 17:21) Sulfa Antibiotics Allergy (Verified 08/27/20 17:21) Sulfacetamide Allergy (Verified 08/27/20 17:21) Sulfamethoxazole Allergy (Verified 08/27/20 17:21) Home Medications: Ambulatory Orders Acetaminophen [Tylenol] 1,000 mg PO Q8H PRN 07/10/20 Alum & Mag Hydrox-Simethicone [Antacid & [place] 200-200-20 mg/5Ml] 1 carlos PO Q8H PRN 07/10/20 Amlodipine Besylate 5 mg PO DAILY 07/10/20 Apixaban [Eliquis] 5 mg PO Q12H 07/10/20 Ascorbic Acid [Vitamin C] 500 mg PEG Q12H 07/10/20 Bisacodyl Suppository 10Mg [Dulcolax Suppository 10mg] 10 mg MS Q24H PRN 07/10/20 Budesonide Nebs [Pulmicort Respules] 0.5 mg NEB BID 07/10/20 Carboxymethylcellulose Sodium [Artificial Tears] 1 % OP Q12H PRN 07/10/20 Cetirizine HCl [ZyrTEC] 10 mg PO DAILY 07/10/20 Chlorhexidine Gluconate (Mouth [Chlorhexidine Gluconate] 15 ml MT Q6H 07/10/20 Clotrimazole W/ Betamethasone [Clotrimazole/Betamethason 1-0.05 %] 1 cre EX DAILY 07/10/20 Cyanocobalamin [B12] 1,000 mcg PO DAILY 07/10/20 Cyclobenzaprine HCl [Cyclobenzaprine Hydrochlo] 10 mg PO Q8H PRN 07/10/20 Diltiazem HCl 30 mg PO Q8H 07/10/20 Ergocalciferol [Vitamin D] 50,000 unit PEG WKLY 07/10/20 Furosemide 40 mg PO DAILY 07/10/20 Ibuprofen 400 mg PO Q8H PRN 07/10/20 Insulin Aspart [Novolog Flexpen] 100 unit SC ACHS 07/10/20 Insulin Glargine [Basaglar Kwikpen] 20 unit SC Q12H 07/10/20 Ipratropium/Albuterol [Duoneb] 3 ml NEB Q12H 07/10/20 Lactulose 30 ml PO DAILY 07/10/20 Levothyroxine Sodium 100 mcg PO DAILY 07/10/20 Lidocaine [Lidocaine Pain Relief Pat] 4 % EX DAILY 07/10/20 Metoclopramide HCl [Metoclopramide Hydrochlor] 10 mg PEG TID 07/10/20 Montelukast [Singulair] 10 mg PEG DAILY 07/10/20 Multiple Vitamin [Multivitamin] 1 tab PO DAILY 07/10/20 Nitrofurantoin Macrocrystal [Nitrofurantoin] 100 mg PO BID 07/10/20 Pantoprazole Tablet [Protonix] 40 mg PO ACBK 07/10/20 Polyethylene Glycol 3350 [Miralax] 17 gm PEG DAILY 07/10/20 Sennosides-Docusate Sodium [Senna-S 8.6-50 mg] 1 tab PEG DAILY 07/10/20 Tramadol HCl 50 mg PEG Q6H PRN 07/10/20 Triamcinolone 0.1% Oint [Kenalog 0.1% Ointment] 1 applic TOP BID 07/10/20 guaiFENesin 100 MG/5 ML [Robitussin] 10 ml PO Q4H PRN 07/10/20 Levofloxacin [Levaquin] 750 mg PO DAILY #7 tab 08/16/20 Furosemide [Lasix] 20 mg PO DAILY #10 tab 08/27/20 Nitrofurantoin Macrocrystal [Nitrofurantoin] 100 mg PO BID #10 cap 08/27/20 Review of Systems - Review of Systems Constitutional: States: malaise. Denies: chills, fever EENTM: Denies: blurred vision, throat pain, mouth pain Respiratory: States: cough, short of breath. Denies: stridor Cardiology: States: chest pain. Denies: palpitations, syncope Gastrointestinal/Abdominal: Denies: diarrhea, nausea, vomiting Genitourinary: States: dysuria Musculoskeletal: States: back pain, muscle pain Skin: Denies: rash Neurological: Denies: headache, numbness, paresthesia Endocrine: Denies: unexplained weight gain, unexplained weight loss Hematologic/Lymphatic: Denies: easy bleeding, easy bruising Past Medical History (General) - Patient Medical History Hx Seizures: No Hx Stroke: No Hx Dementia: No Hx Asthma: No Hx of COPD: Yes Hx Cardiac Disorders: Yes Hx Congestive Heart Failure: Yes Hx Pacemaker: No Hx Hypertension: Yes Hx Thyroid Disease: Yes Hx Diabetes: Yes Hx Gastroesophageal Reflux: Yes Hx Renal Disease: No Hx Cancer: No Hx of HIV: No Hx Hepatitis C: No Hx MRSA: No - Vaccination History Hx Tetanus, Diphtheria Vaccination: Yes Hx Influenza Vaccination: No Hx Pneumococcal Vaccination: No - Social History Hx Tobacco Use: Yes Hx Chewing Tobacco Use: No Hx Alcohol Use: No Hx Substance Use: No Hx Substance Use Treatment: No Hx Depression: Yes Hx Physical Abuse: No Hx Emotional Abuse: No Hx Suspected Abuse: No Family Medical History - Family History Mother Family History: Unknown Physical Exam - Physical Exam General Appearance: Alert, Comfortable, Obese, Well Developed Eyes, Ears, Nose, Throat Exam: PERRL/EOMI, normal ENT inspection - poor dentition Neck: non-tender, full range of motion, supple, normal inspection Respiratory: chest non-tender, normal breath sounds, no respiratory distress, no accessory muscle use, rales Cardiovascular/Chest: normal peripheral pulses, regular rate, rhythm, no gallop, no JVD, no murmur Peripheral Pulses: radial,right: 2+, radial,left: 2+ Gastrointestinal/Abdominal: normal bowel sounds, non tender, soft, no organomegaly, no pulsatile mass Rectal Exam: deferred Extremity: normal range of motion, non-tender, normal inspection, no pedal edema, no calf tenderness, normal capillary refill Neurologic: director of rehabilitation II-XII nml as tested, no motor/sensory deficits, alert, normal mood/affect, oriented x 3 Skin Exam: normal color, warm/dry Progress - Progress Progress: 08/27/20 17:27 partial ddx: pneumonia, covid, CAD, CHF exacerbation, covid. 08/27/20 17:28 cardiac score 3 - Results/Orders Results/Orders: 08/27/20 17:30 EKG STAT 08/27/20 17:46 Mechanical Ventilation DAILY 08/27/20 18:50 URINE CULTURE W/COLONY COUNT Stat 08/27/20 19:06 levoFLOXacin 750MG IV [Levaquin 750MG IV] 750 mg Premix Bag 1 bag IVPB ONCE URINE CULTURE W/COLONY COUNT Stat Laboratory Results WBC 9.8 K/mm3 (4.8-10.8) 08/27/20 17:27 RBC 3.63 M/mm3 (4.20-5.40) L 08/27/20 17:27 Hgb 9.8 gm/dL (12.0-16.0) L 08/27/20 17: Hct 30.6 % (36.0-47.0) L 08/27/20 17: MCV 84.2 fl (81.0-99.0) 08/27/20 17: MCH 27.0 pg (27.0-31.0) 08/27/20 17: MCHC 32.1 g/dL (33.0-37.0) L 08/27/20 17: RDW 14.9 % (11.5-14.5) H 08/27/20 17:27 Plt Count 272 K/mm3 (130-400) 08/27/20 17: MPV 7.3 fl (7.40-10.4) L 08/27/20 17: Absolute Neuts (auto) 7.60 K/uL (1.8-6.8) H 08/27/20 17: Absolute Lymphs (auto) 1.30 K/uL (1.0-3.4) 08/27/20 17: Absolute Monos (auto) 0.80 K/uL (0.2-0.8) 08/27/20 17: Absolute Eos (auto) 0.10 K/uL (0.0-0.4) 08/27/20: Absolute Basos (auto) 0.00 K/uL (0.0-0.1) 08/27/20 17: Neutrophils % 77.5 % (42.0-78.0) 08/27/20: Lymphocytes % 12.8 % (20.0-50.0) L 08/27/20 17: Monocytes % 8.2 % (2.0-9.0) 08/27/20 17: Eosinophils % 1.0 % (1.0-5.0) 08/27/20 17: Basophils % 0.5 % (0.0-2.0) 08/27/20 17: Sodium 142 mmol/L (135-145) 08/27/20 17: Potassium 4.4 mmol/L (3.6-5.0) 08/27/20: Chloride 94 mmol/L (101-111) L 08/27/20: Carbon Dioxide 40 mmol/L (21-31) H 08/27/20 17: Anion Gap 12.4 (12-18) 08/27/20 17: BUN 12 mg/dL (7-18) 08/27/20 17: Creatinine < 0.40 mg/dL (0.6-1.3) L 08/27/20 17: BUN/Creatinine Ratio 30.0 (10-20) H 08/27/20 17: Random Glucose 239 mg/dL (70-105) H 08/27/20 17: Serum Osmolality 290.7 mOsm/L (275-295) 08/27/20 17: Calcium 8.3 mg/dL (8.4-10.2) L 08/27/20 17: Magnesium 2.0 mg/dL (1.8-2.5) 08/27/20 17: Total Bilirubin 0.4 mg/dL (0.2-1.0) 08/27/20 17: AST 16 IU/L (10-42) 08/27/20: ALT 14 IU/L (10-60) 08/27/20 17: Alkaline Phosphatase 85 IU/L (42-121) 08/27/20: Troponin I < 0.02 ng/mL (0.01-0.05) 08/27/20: B-Natriuretic Peptide 122.0 pg/ml (0-100) H 08/27/20 17: Serum Total Protein 6.8 gm/dL (6.4-8.2) 08/27/20: Albumin 3.2 g/dl (3.2-5.5) 08/27/20 17: Globulin 3.6 gm/dL (2.3-3.5) H 08/27/20: Albumin/Globulin Ratio 0.9 (1.1-1.9) L 08/27/20 17: Urine Color Yellow (Yellow) 08/27/20 18:50 Urine Appearance Clear (Clear) 08/27/20 18:50 Urine pH 5.5 (4.5-7.8) 08/27/20 18:50 Ur Specific [place] 1.020 (1.005-1.030) 08/27/20 18:50 Urine Protein Negative mg/dL 08/27/20 18:50 Urine Glucose (UA) Negative mg/dL (Negative) 08/27/20 18:50 Urine Ketones Negative mg/dL (NEGATIVE) 08/27/20 18:50 Urine Blood Negative (Negative) 08/27/20 18:50 Urine Nitrite Positive H 08/27/20 18:50 Urine Bilirubin Negative (NEGATIVE) 08/27/20 18:50 Urine Urobilinogen 0.2 mg/dL (0.2-1.0) 08/27/20 18:50 Ur Leukocyte Esterase Small (Negative) H 08/27/20 18:50 Urine RBC 0 /hpf 08/27/20 18:50 Urine WBC 10-20 /hpf H 08/27/20 18:50 Ur Epithelial Cells 0-1 /hpf 08/27/20 18:50 Urine Bacteria 1+ 08/27/20 18:50 patient given 40 mg IV lasix, she is requesting hernándze catheter. also given levaquin 750 mg x 1 for uti. The data reviewed when caring for this patient included: nurse notes, prior records, etc. The history and assessments from nurses notes were reviewed and considered, and the patient's home medication list was also reviewed and considered. My assessment and the results of testing completed here in the ED were discussed with the patient. All questions were answered, and they express understanding of my assessment and the plan. They have been instructed to return if their symptoms worsen, and have been asked to follow up with their primary care physician to recheck today's presenting complaint. return precautions given. I have reviewed medication, benefits, alternatives and side effects. Chacha Thomas DO #801 - EKG/XRAY/CT EKG: Sinus Comments: QTc 485 otherwise intervals wnl, no evidence of acute ischemia. XRAY: chest - mild pulmonary congestion. Departure - Departure Clinical Impression: UTI (urinary tract infection) Qualifiers: Urinary tract infection type: acute cystitis Hematuria presence: without hematuria Qualified Code(s): N30.00 - Acute cystitis without hematuria ICD-10 Supporting Text: mild pulmonary congestion. Time of Disposition: 19:10 Disposition: Discharge to SNF Instructions: Urinary Tract Infection, Adult (DC), Weight Loss Tips, Weight Loss Diet Diet: other - low calorie diet (1400 per day) Activity: increase activity as tolerated Referrals: VALENTINA DODD [Primary Care Provider] - 1-2 Weeks Prescriptions: Furosemide [Lasix] 20 mg PO DAILY #10 tab Nitrofurantoin Macrocrystal [Nitrofurantoin] 100 mg PO BID #10 cap Home Medications: Ambulatory Orders Acetaminophen [Tylenol] 1,000 mg PO Q8H PRN 07/10/20 Alum & Mag Hydrox-Simethicone [Antacid & [place] 200-200-20 mg/5Ml] 1 carlos PO Q8H PRN 07/10/20 Amlodipine Besylate 5 mg PO DAILY 07/10/20 Apixaban [Eliquis] 5 mg PO Q12H 07/10/20 Ascorbic Acid [Vitamin C] 500 mg PEG Q12H 07/10/20 Bisacodyl Suppository 10Mg [Dulcolax Suppository 10mg] 10 mg MS Q24H PRN 07/10/20 Budesonide Nebs [Pulmicort Respules] 0.5 mg NEB BID 07/10/20 Carboxymethylcellulose Sodium [Artificial Tears] 1 % OP Q12H PRN 07/10/20 Cetirizine HCl [ZyrTEC] 10 mg PO DAILY 07/10/20 Chlorhexidine Gluconate (Mouth [Chlorhexidine Gluconate] 15 ml MT Q6H 07/10/20 Clotrimazole W/ Betamethasone [Clotrimazole/Betamethason 1-0.05 %] 1 cre EX DAILY 07/10/20 Cyanocobalamin [B12] 1,000 mcg PO DAILY 07/10/20 Cyclobenzaprine HCl [Cyclobenzaprine Hydrochlo] 10 mg PO Q8H PRN 07/10/20 Diltiazem HCl 30 mg PO Q8H 07/10/20 Ergocalciferol [Vitamin D] 50,000 unit PEG WKLY 07/10/20 Furosemide 40 mg PO DAILY 07/10/20 Ibuprofen 400 mg PO Q8H PRN 07/10/20 Insulin Aspart [Novolog Flexpen] 100 unit SC ACHS 07/10/20 Insulin Glargine [Basaglar Kwikpen] 20 unit SC Q12H 07/10/20 Ipratropium/Albuterol [Duoneb] 3 ml NEB Q12H 07/10/20 Lactulose 30 ml PO DAILY 07/10/20 Levothyroxine Sodium 100 mcg PO DAILY 07/10/20 Lidocaine [Lidocaine Pain Relief Pat] 4 % EX DAILY 07/10/20 Metoclopramide HCl [Metoclopramide Hydrochlor] 10 mg PEG TID 07/10/20 Montelukast [Singulair] 10 mg PEG DAILY 07/10/20 Multiple Vitamin [Multivitamin] 1 tab PO DAILY 07/10/20 Nitrofurantoin Macrocrystal [Nitrofurantoin] 100 mg PO BID 07/10/20 Pantoprazole Tablet [Protonix] 40 mg PO ACBK 07/10/20 Polyethylene Glycol 3350 [Miralax] 17 gm PEG DAILY 07/10/20 Sennosides-Docusate Sodium [Senna-S 8.6-50 mg] 1 tab PEG DAILY 07/10/20 Tramadol HCl 50 mg PEG Q6H PRN 07/10/20 Triamcinolone 0.1% Oint [Kenalog 0.1% Ointment] 1 applic TOP BID 07/10/20 guaiFENesin 100 MG/5 ML [Robitussin] 10 ml PO Q4H PRN 07/10/20 Levofloxacin [Levaquin] 750 mg PO DAILY #7 tab 08/16/20 Furosemide [Lasix] 20 mg PO DAILY #10 tab 08/27/20 Nitrofurantoin Macrocrystal [Nitrofurantoin] 100 mg PO BID #10 cap 08/27/20
--- NOTE | 2020-08-27 17:49 | RAD ---
XR CHEST 1 VIEW CLINICAL STATEMENT: cp COMPARISON: 07/10/2020 FINDINGS: Heart is moderately enlarged. Tracheostomy tube is in place. No pneumothorax. Mild central pulmonary vascular congestion. No large pleural effusions. IMPRESSION: Mild CHF suspected. Electronically signed by: Hector Rodriguez MD 08/27/2020 5:48 PM POWER SYSTEM DISPATCHER
[2020-08-27] MEDS ORDERED: FUROSEMIDE INJ 40 MG/4 ML VIAL IV ONE (17:56)
[2020-08-27] MEDS ORDERED: HYDROmorphone HCL INJ 2 MG/ML VIAL IV ONE ×2 (18:53→20:10)
[2020-08-27] MEDS ORDERED: levoFLOXacin 750MG IV 750 MG in PREMIX BAG 1 BAG IVPB ONE (19:06)
[2020-08-27 20:09] VITALS: O2SAT 99
[2020-08-27 20:39] VITALS: BP 114/68; TEMP 98.6
== END 2020-08-27 20:39 ==
LOC: ER 17:14
DX: N30.00 Acute cystitis without hematuria (principal); R07.9 Chest pain, unspecified; R06.02 Shortness of breath; R05 Cough; E66.9 Obesity, unspecified; F32.9 Major depressive disorder, single episode, unspecified; K21.9 Gastro-esophageal reflux disease without esophagitis; J44.9 Chronic obstructive pulmonary disease, unspecified; I11.0 Hypertensive heart disease with heart failure; I50.9 Heart failure, unspecified; E11.9 Type 2 diabetes mellitus without complications; E07.9 Disorder of thyroid, unspecified; Z20.828 Contact with and (suspected) exposure to other viral communicable diseases; Z87.891 Personal history of nicotine dependence; Z79.4 Long term (current) use of insulin; Z79.899 Other long term (current) drug therapy; Z79.01 Long term (current) use of anticoagulants; Z88.8 Allergy status to other drugs, medicaments and biological substances; Z88.7 Allergy status to serum and vaccine; Z91.041 Radiographic dye allergy status; Z91.040 Latex allergy status; Z88.5 Allergy status to narcotic agent; Z88.0 Allergy status to penicillin; Z88.2 Allergy status to sulfonamides; Z91.013 Allergy to seafood; Z88.1 Allergy status to other antibiotic agents; Z68.44 Body mass index [BMI] 60.0-69.9, adult
CPT/HCPCS: 36415; 71045; 80053; 81001; 83735; 83880; 84484; 85025; 87086; 87088; 87186; 87635; 93005; 94002; J1170; J1940; J1956

== ENCOUNTER 2020-10-03 19:34 | Emergency (ER) | payer MEDICARE, MEDICAID ==
--- NOTE | 2020-10-03 19:55 | ED.PDOC ---
History of Present Illness - General Chief Complaint: Behavioral / Psych Stated Complaint: anxiety chest pain Time Seen by Provider: 10/03/20 19:35 Source: patient, RN notes reviewed, Vital Signs reviewed, EMS notes reviewed, EMS, retirement records, old records Exam Limitations: no limitations - History of Present Illness Initial Comments: 50 yo morbidly obese female well known to our facility presents from the retirement with the c/c of anxiety. States she has a little bit of chest pain and a little shortness of breath on and off for the past several weeks. no cough, no fever. no current chest pain or shortness of breath. also has chronic back pain which she is requesting pain medication for. Asking for IV Dilaudid. Allergies/Adverse Reactions: Allergies Azithromycin Allergy (Verified 08/27/20 17:21) Bismuth Subsalicylate Allergy (Verified 08/27/20 17:21) Cephalexin Allergy (Verified 08/27/20 17:21) Clindamycin Allergy (Verified 08/27/20 17:21) Doxycycline Allergy (Verified 08/27/20 17:21) Famotidine Allergy (Verified 08/27/20 17:21) Fish Allergy Allergy (Verified 08/27/20 17:21) Gabapentin Allergy (Verified 08/27/20 17:21) Hydrochlorothiazide Allergy (Verified 08/27/20 17:21) Hydrocodone Allergy (Verified 08/27/20 17:21) Influenza Vaccines Allergy (Verified 08/27/20 17:21) Iodine Allergy (Verified 08/27/20 17:21) Latex Allergy (Verified 08/27/20 17:21) Metformin Allergy (Verified 08/27/20 17:21) Morphine Allergy (Verified 08/27/20 17:21) Oxycodone Allergy (Verified 08/27/20 17:21) Penicillins Allergy (Verified 08/27/20 17:21) Sulfa Antibiotics Allergy (Verified 08/27/20 17:21) Sulfacetamide Allergy (Verified 08/27/20 17:21) Sulfamethoxazole Allergy (Verified 08/27/20 17:21) Home Medications: Ambulatory Orders Acetaminophen [Tylenol] 1,000 mg PO Q8H PRN 07/10/20 Alum & Mag Hydrox-Simethicone [Antacid & Antigas 200-200-20 mg/5Ml] 1 carlos PO Q8H PRN 07/10/20 Amlodipine Besylate 5 mg PO DAILY 07/10/20 Apixaban [Eliquis] 5 mg PO Q12H 07/10/20 Ascorbic Acid [Vitamin C] 500 mg PEG Q12H 07/10/20 Bisacodyl Suppository 10Mg [Dulcolax Suppository 10mg] 10 mg SC Q24H PRN 07/10/20 Budesonide Nebs [Pulmicort Respules] 0.5 mg NEB BID 07/10/20 Carboxymethylcellulose Sodium [Artificial Tears] 1 % OP Q12H PRN 07/10/20 Cetirizine HCl [ZyrTEC] 10 mg PO DAILY 07/10/20 Chlorhexidine Gluconate (Mouth [Chlorhexidine Gluconate] 15 ml MT Q6H 07/10/20 Clotrimazole W/ Betamethasone [Clotrimazole/Betamethason 1-0.05 %] 1 cre EX DAILY 07/10/20 Cyanocobalamin [B12] 1,000 mcg PO DAILY 07/10/20 Cyclobenzaprine HCl [Cyclobenzaprine Hydrochlo] 10 mg PO Q8H PRN 07/10/20 Diltiazem HCl 30 mg PO Q8H 07/10/20 Ergocalciferol [Vitamin D] 50,000 unit PEG WKLY 07/10/20 Furosemide 40 mg PO DAILY 07/10/20 Ibuprofen 400 mg PO Q8H PRN 07/10/20 Insulin Aspart [Novolog Flexpen] 100 unit SC ACHS 07/10/20 Insulin Glargine [Basaglar Kwikpen] 20 unit SC Q12H 07/10/20 Ipratropium/Albuterol [Duoneb] 3 ml NEB Q12H 07/10/20 Lactulose 30 ml PO DAILY 07/10/20 Levothyroxine Sodium 100 mcg PO DAILY 07/10/20 Lidocaine [Lidocaine Pain Relief Pat] 4 % EX DAILY 07/10/20 Metoclopramide HCl [Metoclopramide Hydrochlor] 10 mg PEG TID 07/10/20 Montelukast [Singulair] 10 mg PEG DAILY 07/10/20 Multiple Vitamin [Multivitamin] 1 tab PO DAILY 07/10/20 Nitrofurantoin Macrocrystal [Nitrofurantoin] 100 mg PO BID 07/10/20 Pantoprazole Tablet [Protonix] 40 mg PO ACBK 07/10/20 Polyethylene Glycol 3350 [Miralax] 17 gm PEG DAILY 07/10/20 Sennosides-Docusate Sodium [Senna-S 8.6-50 mg] 1 tab PEG DAILY 07/10/20 Tramadol HCl 50 mg PEG Q6H PRN 07/10/20 Triamcinolone 0.1% Oint [Kenalog 0.1% Ointment] 1 applic TOP BID 07/10/20 guaiFENesin 100 MG/5 ML [Robitussin] 10 ml PO Q4H PRN 07/10/20 Levofloxacin [Levaquin] 750 mg PO DAILY #7 tab 08/16/20 Furosemide [Lasix] 20 mg PO DAILY #10 tab 08/27/20 Nitrofurantoin Macrocrystal [Nitrofurantoin] 100 mg PO BID #10 cap 08/27/20 Cyclobenzaprine HCl [Flexeril] 10 mg PO TID PRN #12 tab 10/03/20 Review of Systems - Review of Systems Constitutional: Denies: chills, fever, malaise EENTM: Denies: blurred vision, throat pain, mouth pain Respiratory: States: short of breath. Denies: cough Cardiology: States: chest pain. Denies: palpitations, syncope Gastrointestinal/Abdominal: Denies: abdominal pain, diarrhea, nausea Genitourinary: Denies: dysuria, frequency Musculoskeletal: States: back pain, joint pain, muscle pain Skin: States: dryness Neurological: Denies: headache, numbness, weakness Endocrine: Denies: unexplained weight loss Hematologic/Lymphatic: Denies: blood clots, easy bleeding, easy bruising Past Medical History (General) - Patient Medical History Hx Seizures: No Hx Stroke: No Hx Dementia: No Hx Asthma: No Hx of COPD: Yes Hx Cardiac Disorders: Yes Hx Congestive Heart Failure: Yes Hx Pacemaker: No Hx Hypertension: Yes Hx Thyroid Disease: Yes Hx Diabetes: Yes Hx Gastroesophageal Reflux: Yes Hx Renal Disease: No Hx Cancer: No Hx of HIV: No Hx Hepatitis C: No Hx MRSA: No - Vaccination History Hx Tetanus, Diphtheria Vaccination: Yes Hx Influenza Vaccination: No Hx Pneumococcal Vaccination: No - Social History Hx Tobacco Use: Yes Hx Chewing Tobacco Use: No Hx Alcohol Use: No Hx Substance Use: No Hx Substance Use Treatment: No Hx Depression: Yes Hx Physical Abuse: No Hx Emotional Abuse: No Hx Suspected Abuse: No Family Medical History - Family History Mother Family History: Unknown Physical Exam - Physical Exam General Appearance: Alert, Comfortable, No apparent distress, Obese, Well Developed, Well Groomed, Well Hydrated, Well Nourished Eye Exam: bilateral normal Ears, Nose, Throat: normal ENT inspection Neck: non-tender, full range of motion, supple, normal inspection, other - trach in place, clean Respiratory: chest non-tender, lungs clear, normal breath sounds, no respiratory distress, no accessory muscle use Cardiovascular/Chest: normal peripheral pulses, regular rate, rhythm, other - chronic PVD hyperpigemented changes, edema Peripheral Pulses: radial,right: 2+, radial,left: 2+ Gastrointestinal/Abdominal: non tender, soft Rectal Exam: deferred Back Exam: no CVA tenderness, no vertebral tenderness Extremity: non-tender, pedal edema 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 The data reviewed when caring for this patient included: nurse notes, prior records, etc. The history and assessments from nurses notes were reviewed and considered, and the patient's home medication list was also reviewed and considered. My assessment and the results of testing completed here in the ED were discussed with the patient. All questions were answered, and they express understanding of my assessment and the plan. They have been instructed to return if their symptoms worsen, and have been asked to follow up with their primary care physician to recheck today's presenting complaint. return precautions given. I have reviewed medication, benefits, alternatives and side effects. Patient decided to proceed with medication. Chacha Thomas DO #[id number] - Results/Orders Results/Orders: Laboratory Results WBC 9.4 K/mm3 (4.8-10.8) 10/03/20 20:15 RBC 3.82 M/mm3 (4.20-5.40) L 10/03/20 20:15 Hgb 9.4 gm/dL (12.0-16.0) L 10/03/20 20:15 Hct 30.3 % (36.0-47.0) L 10/03/20 20:15 MCV 79.4 fl (81.0-99.0) L 10/03/20 20:15 MCH 24.6 pg (27.0-31.0) L 10/03/20 20:15 MCHC 31.0 g/dL (33.0-37.0) L 10/03/20 20:15 RDW 15.9 % (11.5-14.5) H 10/03/20 20:15 Plt Count 250 K/mm3 (130-400) 10/03/20 20:15 MPV 6.8 fl (7.40-10.4) L 10/03/20 20:15 Absolute Neuts (auto) 6.90 K/uL (1.8-6.8) H 10/03/20 20:15 Absolute Lymphs (auto) 1.50 K/uL (1.0-3.4) 10/03/20 20:15 Absolute Monos (auto) 0.80 K/uL (0.2-0.8) 10/03/20 20:15 Absolute Eos (auto) 0.10 K/uL (0.0-0.4) 10/03/20 20:15 Absolute Basos (auto) 0.10 K/uL (0.0-0.1) 10/03/20 20:15 Neutrophils % 73.9 % (42.0-78.0) 10/03/20 20:15 Lymphocytes % 15.5 % (20.0-50.0) L 10/03/20 20:15 Monocytes % 8.6 % (2.0-9.0) 10/03/20 20:15 Eosinophils % 1.5 % (1.0-5.0) 10/03/20 20:15 Basophils % 0.5 % (0.0-2.0) 10/03/20 20:15 Sodium 138 mmol/L (135-145) 10/03/20 20:15 Potassium 3.7 mmol/L (3.6-5.0) 10/03/20 20:15 Chloride 89 mmol/L (101-111) L 10/03/20 20:15 Carbon Dioxide 38 mmol/L (21-31) H 10/03/20 20:15 Anion Gap 14.7 (12-18) 10/03/20 20:15 BUN 12 mg/dL (7-18) 10/03/20 20:15 Creatinine 0.49 mg/dL (0.6-1.3) L 10/03/20 20:15 BUN/Creatinine Ratio 24.5 (10-20) H 10/03/20 20:15 Random Glucose 220 mg/dL (70-105) H 10/03/20 20:15 Serum Osmolality 282.2 mOsm/L (275-295) 10/03/20 20:15 Calcium 8.5 mg/dL (8.4-10.2) 10/03/20 20:15 Troponin I < 0.02 ng/mL (0.01-0.05) 10/03/20 20:15 B-Natriuretic Peptide 181.0 pg/ml (0-100) H 10/03/20 20:15 - EKG/XRAY/CT EKG: Sinus - hr 97, normal intervals, low voltage, most likely secondary to habitus. XRAY: chest - no acute cardiopulmonary pathology Procedures - Additional Procedures Progress: cerumen removal with warm water and H2O2, and manual removal. Departure - Departure Clinical Impression: Anxiety, Impacted cerumen of both ears Back pain Qualifiers: Back pain location: low back pain Chronicity: chronic Back pain laterality: right Sciatica presence: without sciatica Qualified Code(s): M54.5 - Low back pain Time of Disposition: 21:20 Disposition: Discharge to SNF Departure Forms: ED Discharge - Pt. Copy, Patient Portal Self Enrollment Instructions: DI for Psychosis, Generalized Anxiety Disorder, Low Back Pain (DC), Ear Wax Impaction (DC) Diet: diabetic diet Activity: increase activity as tolerated Referrals: VALENTINA DODD [Primary Care Provider] - 1-2 Days Prescriptions: Cyclobenzaprine HCl [Flexeril] 10 mg PO TID PRN #12 tab PRN Reason: Muscle Spasms Home Medications: Ambulatory Orders Acetaminophen [Tylenol] 1,000 mg PO Q8H PRN 07/10/20 Alum & Mag Hydrox-Simethicone [Antacid & Antigas 200-200-20 mg/5Ml] 1 carlos PO Q8H PRN 07/10/20 Amlodipine Besylate 5 mg PO DAILY 07/10/20 Apixaban [Eliquis] 5 mg PO Q12H 07/10/20 Ascorbic Acid [Vitamin C] 500 mg PEG Q12H 07/10/20 Bisacodyl Suppository 10Mg [Dulcolax Suppository 10mg] 10 mg SC Q24H PRN 07/10/20 Budesonide Nebs [Pulmicort Respules] 0.5 mg NEB BID 07/10/20 Carboxymethylcellulose Sodium [Artificial Tears] 1 % OP Q12H PRN 07/10/20 Cetirizine HCl [ZyrTEC] 10 mg PO DAILY 07/10/20 Chlorhexidine Gluconate (Mouth [Chlorhexidine Gluconate] 15 ml MT Q6H 07/10/20 Clotrimazole W/ Betamethasone [Clotrimazole/Betamethason 1-0.05 %] 1 cre EX DAILY 07/10/20 Cyanocobalamin [B12] 1,000 mcg PO DAILY 07/10/20 Cyclobenzaprine HCl [Cyclobenzaprine Hydrochlo] 10 mg PO Q8H PRN 07/10/20 Diltiazem HCl 30 mg PO Q8H 07/10/20 Ergocalciferol [Vitamin D] 50,000 unit PEG WKLY 07/10/20 Furosemide 40 mg PO DAILY 07/10/20 Ibuprofen 400 mg PO Q8H PRN 07/10/20 Insulin Aspart [Novolog Flexpen] 100 unit SC ACHS 07/10/20 Insulin Glargine [Basaglar Kwikpen] 20 unit SC Q12H 07/10/20 Ipratropium/Albuterol [Duoneb] 3 ml NEB Q12H 07/10/20 Lactulose 30 ml PO DAILY 07/10/20 Levothyroxine Sodium 100 mcg PO DAILY 07/10/20 Lidocaine [Lidocaine Pain Relief Pat] 4 % EX DAILY 07/10/20 Metoclopramide HCl [Metoclopramide Hydrochlor] 10 mg PEG TID 07/10/20 Montelukast [Singulair] 10 mg PEG DAILY 07/10/20 Multiple Vitamin [Multivitamin] 1 tab PO DAILY 07/10/20 Nitrofurantoin Macrocrystal [Nitrofurantoin] 100 mg PO BID 07/10/20 Pantoprazole Tablet [Protonix] 40 mg PO ACBK 07/10/20 Polyethylene Glycol 3350 [Miralax] 17 gm PEG DAILY 07/10/20 Sennosides-Docusate Sodium [Senna-S 8.6-50 mg] 1 tab PEG DAILY 07/10/20 Tramadol HCl 50 mg PEG Q6H PRN 07/10/20 Triamcinolone 0.1% Oint [Kenalog 0.1% Ointment] 1 applic TOP BID 07/10/20 guaiFENesin 100 MG/5 ML [Robitussin] 10 ml PO Q4H PRN 07/10/20 Levofloxacin [Levaquin] 750 mg PO DAILY #7 tab 08/16/20 Furosemide [Lasix] 20 mg PO DAILY #10 tab 08/27/20 Nitrofurantoin Macrocrystal [Nitrofurantoin] 100 mg PO BID #10 cap 08/27/20 Cyclobenzaprine HCl [Flexeril] 10 mg PO TID PRN #12 tab 10/03/20
[2020-10-03] MEDS ORDERED: ACETAMINOPHEN W/COD #3 TAB 1 EA TAB PO ONE (20:02)
[2020-10-03] MEDS ORDERED: KETOROLAC TROMETHAMINE INJ 30 MG/ML VIAL IM ONE (20:10)
--- NOTE | 2020-10-03 20:38 | RAD ---
EXAM DESCRIPTION: Chest,1 View CLINICAL HISTORY: cp COMPARISON: August 27, 2020 FINDINGS: Cardiac silhouette is enlarged unchanged compared with the prior exam. This could be secondary to cardiomegaly. There is a tracheostomy tube. EKG leads project over the chest. There is no discrete focal parenchymal or pleural disease. There is no acute osseous process visualized. IMPRESSION: No evidence of acute cardiopulmonary disease. Electronically signed by: Jose Campbell MD 10/03/2020 8:36 PM FLEXBOARD OPERATOR
[2020-10-03] MEDS ORDERED: diazePAM 5 MG TAB PO ONE (20:53)
[2020-10-03 21:47] VITALS: TEMP 97.9; O2SAT 100
[2020-10-03 21:48] VITALS: BP 118/68
== END 2020-10-03 21:57 ==
LOC: ER 19:34
DX: F41.9 Anxiety disorder, unspecified (principal); H61.23 Impacted cerumen, bilateral; M54.5 Low back pain; G89.29 Other chronic pain; R07.9 Chest pain, unspecified; R06.02 Shortness of breath; J44.9 Chronic obstructive pulmonary disease, unspecified; I50.9 Heart failure, unspecified; I11.0 Hypertensive heart disease with heart failure; E07.9 Disorder of thyroid, unspecified; E11.9 Type 2 diabetes mellitus without complications; K21.9 Gastro-esophageal reflux disease without esophagitis; F32.9 Major depressive disorder, single episode, unspecified; E66.01 Morbid (severe) obesity due to excess calories; Z20.828 Contact with and (suspected) exposure to other viral communicable diseases; Z87.891 Personal history of nicotine dependence; Z79.899 Other long term (current) drug therapy; Z88.8 Allergy status to other drugs, medicaments and biological substances; Z88.5 Allergy status to narcotic agent; Z88.7 Allergy status to serum and vaccine; Z91.041 Radiographic dye allergy status; Z91.040 Latex allergy status; Z88.0 Allergy status to penicillin; Z88.2 Allergy status to sulfonamides; Z79.4 Long term (current) use of insulin; Z68.44 Body mass index [BMI] 60.0-69.9, adult
CPT/HCPCS: 71045; 80048; 83880; 84484; 85025; 87635; 93005; 94002; J1885

== ENCOUNTER 2020-10-25 20:55 | Emergency (ER) | payer MEDICARE, MEDICAID ==
--- NOTE | 2020-10-25 21:29 | ED.PDOC ---
History of Present Illness - General Chief Complaint: General Stated Complaint: left knee pain no injury Time Seen by Provider: 10/25/20 21:28 Exam Limitations: clinical condition, other - Tracheostomy, unable to speak Very well. Additional Information: Nursing staff reports that the ventilator care facility reports the patient is complaining of pain in the absence of trauma. She is refusing to take the medication offered to her for pain.This apparently is a recurrent scenario for this patient. - History of Present Illness Severity: mild Improving Factors: nothing Worsening Factors: nothing Allergies/Adverse Reactions: Allergies Azithromycin Allergy (Verified 08/27/20 17:21) Bismuth Subsalicylate Allergy (Verified 08/27/20 17:21) Cephalexin Allergy (Verified 08/27/20 17:21) Clindamycin Allergy (Verified 08/27/20 17:21) Doxycycline Allergy (Verified 08/27/20 17:21) Famotidine Allergy (Verified 08/27/20 17:21) Fish Allergy Allergy (Verified 08/27/20 17:21) Gabapentin Allergy (Verified 08/27/20 17:21) Hydrochlorothiazide Allergy (Verified 08/27/20 17:21) Hydrocodone Allergy (Verified 08/27/20 17:21) Influenza Vaccines Allergy (Verified 08/27/20 17:21) Iodine Allergy (Verified 08/27/20 17:21) Latex Allergy (Verified 08/27/20 17:21) Metformin Allergy (Verified 08/27/20 17:21) Morphine Allergy (Verified 08/27/20 17:21) Oxycodone Allergy (Verified 08/27/20 17:21) Penicillins Allergy (Verified 08/27/20 17:21) Sulfa Antibiotics Allergy (Verified 08/27/20 17:21) Sulfacetamide Allergy (Verified 08/27/20 17:21) Sulfamethoxazole Allergy (Verified 08/27/20 17:21) Home Medications: Ambulatory Orders Acetaminophen [Tylenol] 1,000 mg PO Q8H PRN 07/10/20 Alum & Mag Hydrox-Simethicone [Antacid & Antigas 200-200-20 mg/5Ml] 1 carlos PO Q8H PRN 07/10/20 Amlodipine Besylate 5 mg PO DAILY 07/10/20 Apixaban [Eliquis] 5 mg PO Q12H 07/10/20 Ascorbic Acid [Vitamin C] 500 mg PEG Q12H 07/10/20 Bisacodyl Suppository 10Mg [Dulcolax Suppository 10mg] 10 mg GA Q24H PRN 07/10/20 Budesonide Nebs [Pulmicort Respules] 0.5 mg NEB BID 07/10/20 Carboxymethylcellulose Sodium [Artificial Tears] 1 % OP Q12H PRN 07/10/20 Cetirizine HCl [ZyrTEC] 10 mg PO DAILY 07/10/20 Chlorhexidine Gluconate (Mouth [Chlorhexidine Gluconate] 15 ml MT Q6H 07/10/20 Clotrimazole W/ Betamethasone [Clotrimazole/Betamethason 1-0.05 %] 1 cre EX DAILY 07/10/20 Cyanocobalamin [B12] 1,000 mcg PO DAILY 07/10/20 Cyclobenzaprine HCl [Cyclobenzaprine Hydrochlo] 10 mg PO Q8H PRN 07/10/20 Diltiazem HCl 30 mg PO Q8H 07/10/20 Ergocalciferol [Vitamin D] 50,000 unit PEG WKLY 07/10/20 Furosemide 40 mg PO DAILY 07/10/20 Ibuprofen 400 mg PO Q8H PRN 07/10/20 Insulin Aspart [Novolog Flexpen] 100 unit SC ACHS 07/10/20 Insulin Glargine [Basaglar Kwikpen] 20 unit SC Q12H 07/10/20 Ipratropium/Albuterol [Duoneb] 3 ml NEB Q12H 07/10/20 Lactulose 30 ml PO DAILY 07/10/20 Levothyroxine Sodium 100 mcg PO DAILY 07/10/20 Lidocaine [Lidocaine Pain Relief Pat] 4 % EX DAILY 07/10/20 Metoclopramide HCl [Metoclopramide Hydrochlor] 10 mg PEG TID 07/10/20 Montelukast [Singulair] 10 mg PEG DAILY 07/10/20 Multiple Vitamin [Multivitamin] 1 tab PO DAILY 07/10/20 Nitrofurantoin Macrocrystal [Nitrofurantoin] 100 mg PO BID 07/10/20 Pantoprazole Tablet [Protonix] 40 mg PO ACBK 07/10/20 Polyethylene Glycol 3350 [Miralax] 17 gm PEG DAILY 07/10/20 Sennosides-Docusate Sodium [Senna-S 8.6-50 mg] 1 tab PEG DAILY 07/10/20 Tramadol HCl 50 mg PEG Q6H PRN 07/10/20 Triamcinolone 0.1% Oint [Kenalog 0.1% Ointment] 1 applic TOP BID 07/10/20 guaiFENesin 100 MG/5 ML [Robitussin] 10 ml PO Q4H PRN 07/10/20 Levofloxacin [Levaquin] 750 mg PO DAILY #7 tab 08/16/20 Furosemide [Lasix] 20 mg PO DAILY #10 tab 08/27/20 Nitrofurantoin Macrocrystal [Nitrofurantoin] 100 mg PO BID #10 cap 08/27/20 Cyclobenzaprine HCl [Flexeril] 10 mg PO TID PRN #12 tab 10/03/20 Review of Systems - Review of Systems Review of Systems: 10/26/20 04:18 Constitutional: States: no symptoms reported EENTM: States: no symptoms reported Respiratory: States: no symptoms reported Cardiology: States: no symptoms reported Gastrointestinal/Abdominal: States: no symptoms reported Genitourinary: States: no symptoms reported Musculoskeletal: States: joint pain Skin: States: no symptoms reported Neurological: States: no symptoms reported All other Systems: Reviewed and Negative Past Medical History (General) - Patient Medical History Hx Seizures: No Hx Stroke: No Hx Dementia: No Hx Asthma: No Hx of COPD: Yes Hx Cardiac Disorders: Yes Hx Congestive Heart Failure: Yes Hx Pacemaker: No Hx Hypertension: Yes Hx Thyroid Disease: Yes Hx Diabetes: Yes Hx Gastroesophageal Reflux: Yes Hx Renal Disease: No Hx Cancer: No Hx of HIV: No Hx Hepatitis C: No Hx MRSA: No - Vaccination History Hx Tetanus, Diphtheria Vaccination: Yes Hx Influenza Vaccination: No Hx Pneumococcal Vaccination: No - Social History Hx Tobacco Use: Yes Hx Chewing Tobacco Use: No Hx Alcohol Use: No Hx Substance Use: No Hx Substance Use Treatment: No Hx Depression: Yes Hx Physical Abuse: No Hx Emotional Abuse: No Hx Suspected Abuse: No - Activities of Daily Living [facility]if applicable[facility] Family Medical History - Family History Mother Family History: Unknown Physical Exam - Physical Exam General Appearance: Alert, Obese Eye Exam: bilateral normal Ears, Nose, Throat: hearing grossly normal, normal ENT inspection Neck: other - Tracheostomy present in good condition without evidence of infection or obstruction Respiratory: lungs clear, no respiratory distress Cardiovascular/Chest: normal peripheral pulses Gastrointestinal/Abdominal: normal bowel sounds, non tender, soft Back Exam: normal inspection, no CVA tenderness Extremity: normal range of motion, no pedal edema, no calf tenderness, swelling, other - Left knee diffusely tender to palpation without deformity. Patient has full range of motion with discomfort. 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 for pain.Patient had multiple allergies making analgesic relief of pain difficult. - Results/Orders Results/Orders: AM: XR Left Knee, 2 Views CLINICAL HISTORY: pain no injury TECHNIQUE: Frontal and lateral views of the left knee. COMPARISON: 06/13/2020 FINDINGS: Bones/joints: Medial compartment suboptimally assessed due to osseous overlap. There is no gross change in moderate to severe tricompartment primary osteoarthritic change. No evident fracture. No dislocation. Soft tissues: No abnormality noted. IMPRESSION: Stable severe tricompartment primary osteoarthritis. Electronically signed by: Layla Moody MD 10/25/2020 10:00 PM SEASONAL DRIVER Departure - Departure Clinical Impression: Pain Degenerative joint disease Qualifiers: Osteoarthritis location: knee Osteoarthritis type: primary Laterality: left Qualified Code(s): M17.12 - Unilateral primary osteoarthritis, left knee Time of Disposition: 22:20 Disposition: Discharge to Home or Self Care Condition: Good Departure Forms: ED Discharge - Pt. Copy, Patient Portal Self Enrollment Diet: resume usual diet Referrals: VALENTINA DODD [Primary Care Provider] - 1-2 Weeks Home Medications: Ambulatory Orders Acetaminophen [Tylenol] 1,000 mg PO Q8H PRN 07/10/20 Alum & Mag Hydrox-Simethicone [Antacid & [place]ig[place] 200-200-20 mg/5Ml] 1 carlos PO Q8H PRN 07/10/20 Amlodipine Besylate 5 mg PO DAILY 07/10/20 Apixaban [Eliquis] 5 mg PO Q12H 07/10/20 Ascorbic Acid [Vitamin C] 500 mg PEG Q12H 07/10/20 Bisacodyl Suppository 10Mg [Dulcolax Suppository 10mg] 10 mg GA Q24H PRN 07/10/20 Budesonide Nebs [Pulmicort Respules] 0.5 mg NEB BID 07/10/20 Carboxymethylcellulose Sodium [Artificial Tears] 1 % OP Q12H PRN 07/10/20 Cetirizine HCl [ZyrTEC] 10 mg PO DAILY 07/10/20 Chlorhexidine Gluconate (Mouth [Chlorhexidine Gluconate] 15 ml MT Q6H 07/10/20 Clotrimazole W/ Betamethasone [Clotrimazole/Betamethason 1-0.05 %] 1 cre EX DAILY 07/10/20 Cyanocobalamin [B12] 1,000 mcg PO DAILY 07/10/20 Cyclobenzaprine HCl [Cyclobenzaprine Hydrochlo] 10 mg PO Q8H PRN 07/10/20 Diltiazem HCl 30 mg PO Q8H 07/10/20 Ergocalciferol [Vitamin D] 50,000 unit PEG WKLY 07/10/20 Furosemide 40 mg PO DAILY 07/10/20 Ibuprofen 400 mg PO Q8H PRN 07/10/20 Insulin Aspart [Novolog Flexpen] 100 unit SC ACHS 07/10/20 Insulin Glargine [Basaglar Kwikpen] 20 unit SC Q12H 07/10/20 Ipratropium/Albuterol [Duoneb] 3 ml NEB Q12H 07/10/20 Lactulose 30 ml PO DAILY 07/10/20 Levothyroxine Sodium 100 mcg PO DAILY 07/10/20 Lidocaine [Lidocaine Pain Relief Pat] 4 % EX DAILY 07/10/20 Metoclopramide HCl [Metoclopramide Hydrochlor] 10 mg PEG TID 07/10/20 Montelukast [Singulair] 10 mg PEG DAILY 07/10/20 Multiple Vitamin [Multivitamin] 1 tab PO DAILY 07/10/20 Nitrofurantoin Macrocrystal [Nitrofurantoin] 100 mg PO BID 07/10/20 Pantoprazole Tablet [Protonix] 40 mg PO ACBK 07/10/20 Polyethylene Glycol 3350 [Miralax] 17 gm PEG DAILY 07/10/20 Sennosides-Docusate Sodium [Senna-S 8.6-50 mg] 1 tab PEG DAILY 07/10/20 Tramadol HCl 50 mg PEG Q6H PRN 07/10/20 Triamcinolone 0.1% Oint [Kenalog 0.1% Ointment] 1 applic TOP BID 07/10/20 guaiFENesin 100 MG/5 ML [Robitussin] 10 ml PO Q4H PRN 07/10/20 Levofloxacin [Levaquin] 750 mg PO DAILY #7 tab 08/16/20 Furosemide [Lasix] 20 mg PO DAILY #10 tab 08/27/20 Nitrofurantoin Macrocrystal [Nitrofurantoin] 100 mg PO BID #10 cap 08/27/20 Cyclobenzaprine HCl [Flexeril] 10 mg PO TID PRN #12 tab 10/03/20 Additional Instructions: Continue usual medication of Tylenol for pain. You have severe arthritis for which orthopedic consultation may be helpful.
--- NOTE | 2020-10-25 22:01 | RAD ---
EXAM: XR Left Knee, 2 Views CLINICAL HISTORY: pain no injury TECHNIQUE: Frontal and lateral views of the left knee. COMPARISON: 06/13/2020 FINDINGS: Bones/joints: Medial compartment suboptimally assessed due to osseous overlap. There is no gross change in moderate to severe tricompartment primary osteoarthritic change. No evident fracture. No dislocation. Soft tissues: No abnormality noted. IMPRESSION: Stable severe tricompartment primary osteoarthritis. Electronically signed by: Layla Moody MD 10/25/2020 10:00 PM [facility]
[2020-10-25] MEDS ORDERED: ACETAMINOPHEN LIQUID 160 MG/5 ML UD PO ONE (22:15)
[2020-10-25] MEDS ORDERED: ACETAMINOPHEN 500 MG TAB ONE (22:22)
[2020-10-25] MEDS ORDERED: ACETAMINOPHEN 500 MG TAB PO ONE (22:32)
[2020-10-25 22:39] VITALS: BP 112/70; TEMP 97.9; O2SAT 98
== END 2020-10-25 22:50 | disposition home or self-care (01) ==
LOC: ER 20:55
DX: M17.12 Unilateral primary osteoarthritis, left knee (principal); F32.9 Major depressive disorder, single episode, unspecified; K21.9 Gastro-esophageal reflux disease without esophagitis; I50.9 Heart failure, unspecified; I11.0 Hypertensive heart disease with heart failure; E07.9 Disorder of thyroid, unspecified; J44.9 Chronic obstructive pulmonary disease, unspecified; Z93.0 Tracheostomy status; Z99.11 Dependence on respirator [ventilator] status; Z87.891 Personal history of nicotine dependence; Z79.899 Other long term (current) drug therapy; Z79.4 Long term (current) use of insulin; Z88.2 Allergy status to sulfonamides; Z88.5 Allergy status to narcotic agent; Z88.7 Allergy status to serum and vaccine; Z91.041 Radiographic dye allergy status; Z91.040 Latex allergy status; Z88.8 Allergy status to other drugs, medicaments and biological substances; Z88.0 Allergy status to penicillin; Z88.1 Allergy status to other antibiotic agents